=== PATIENT | male | born 1960 | race Hispanic/Latino ===

== ENCOUNTER 2018-07-12 09:36 | Emergency (ER) | payer OTHER ==
[2018-07-12] MEDS ORDERED: NA CHLORIDE 0.9% 1,000 ML ONE (10:45)
[2018-07-12 10:48] LABS: Absolute Lymphocytes (CBC) 1.6 K/uL (0.7-4.9); Absolute Monocytes 0.7 K/uL (0.1-1.3); Absolute Neutrophil 4.5 K/uL (1.8-8.0); Eosinophils % 12.1 % (0-4.4); Hematocrit 45.6 % (39.6-49.0); Lymphocytes % 21.1 % (15.3-44.8); MCH 29.4 pg (27.0-35.0); MCV 87.5 fL (80-100); MPV 7.7 fL (7.6-11.3); Monocytes % 8.4 % (3.3-12.3); RBC Red Blood Cell Count 5.21 M/uL (4.33-5.43)
[2018-07-12] MEDS ORDERED: CLINDAMYCIN 600MG/D5W 600 MG/50 ML BAG IV ONE (10:48)
[2018-07-12] MEDS ORDERED: KETOROLAC 30 MG/ML INJ ONE (11:36)
--- NOTE | 2018-07-12 13:54 | ER ---
Nurse's Notes [facility] Name: Moisés Albarado Age: 57 yrs Sex: Male : 1960 Arrival Date: 07/12/2018 Time: 09:41 Bed 19 Private MD: Unknown, Unknown Diagnosis: Local infection of the skin and subcutaneous tissue, unspecified-left great toe Presentation: 07/12 09:49 Presenting complaint: Patient states: Infection to left great toe that started 2 weeks aj ago after ingrown toenail removal. Patient has appointment with PCP. Transition of care: patient was not received from another setting of care. Onset of symptoms was June 24, 2018. Risk Assessment: Do you want to hurt yourself or someone else? Patient reports no desire to harm self or others. Initial Sepsis Screen: Does the patient meet any 2 criteria? No. Patient's initial sepsis screen is negative. Does the patient have a suspected source of infection? No. Patient's initial sepsis screen is negative. Care prior to arrival: None. 09:49 Method Of Arrival: Ambulatory aj 09:49 Acuity: BLANKA 3 aj Triage Assessment: 09:51 General: Appears in no apparent distress. comfortable, Behavior is calm, cooperative, aj appropriate for age. Pain: Complains of pain in left first toe and Left first toenail. Neuro: Level of Consciousness is awake, alert, obeys commands, Oriented to person, place, time, situation, Appropriate for age. Respiratory: Airway is patent Respiratory effort is even, unlabored, Respiratory pattern is regular, symmetrical. Derm: Skin is intact, is healthy with good turgor, Skin is pink, warm \T\ dry. normal, Redness and inflammation to left great toe. Nail missing. Black eschar noted. Historical: - Allergies: 09:51 No Known Allergies; aj - Home Meds: 09:51 None [Active]; aj - PMHx: 09:51 None; aj - PSHx: 09:51 None; aj - Immunization history:: Adult Immunizations up to date. - Social history:: Smoking status: Patient uses tobacco products, smokes one pack cigarettes per day. Patient uses alcohol, on a daily basis. - Ebola Screening: : Patient negative for fever greater than or equal to 101.5 degrees Fahrenheit, and additional compatible Ebola Virus Disease symptoms Patient denies exposure to infectious person Patient denies travel to an Ebola-affected area in the 21 days before illness onset No symptoms or risks identified at this time. Screenin:00 Abuse screen: Denies threats or abuse. Nutritional screening: No deficits noted. ja1 Tuberculosis screening: No symptoms or risk factors identified. Fall Risk None identified. Assessment: 11:00 General: Appears in no apparent distress. comfortable, Behavior is calm, cooperative. iw Pain: Complains of pain in left first toe. Neuro: No deficits noted. Level of Consciousness is awake, alert, obeys commands, Oriented to person, place, time, situation. Respiratory: Respiratory effort is even, unlabored. Derm: Decubitus located on left great toe. Musculoskeletal: Reports pain in left first toe. Vital Signs: 09:51 BP 159 / 85; Pulse 108; Resp 16; Temp 98.4; Pulse Ox 98% on R/A; Weight 74.39 kg; aj Height 5 ft. 4 in. (162.56 cm); 13:48 BP 154 / 95; Pulse 76; Resp 16; Temp 98.6(O); Pulse Ox 100% on R/A; Pain 0/10; iw 09:51 Body Mass Index 28.15 (74.39 kg, 162.56 cm) aj ED Course: 09:41 Patient arrived in ED. sb2 09:41 Unknown, Unknown is Private Physician. sb2 09:50 Triage completed. aj 09:51 Arm band placed on left wrist. Patient placed in an exam room. aj 10:00 Patient has correct armband on for positive identification. Allergy band placed. ja1 10:06 [facility] kb 10:06 Song Holm MD is Attending Physician. kb 10:13 Salazar Soliman RN is Primary Nurse. ja1 10:50 Inserted saline lock: 20 gauge in left. ja1 10:55 Hemoglobin A1c Sent. ja1 11:03 Wound Culture Sent. ja1 13:00 No provider procedures requiring assistance completed. ja1 13:25 X-ray completed. Portable x-ray completed in exam room. Patient tolerated procedure mh1 well. 13:27 Foot Left 3 View XRAY In Process Unspecified. EDMS 14:10 IV discontinued. ja1 Administered Medications: 10:51 Drug: Clindamycin 600 mg Route: IVPB; Infused Over: 30 mins; Site: left antecubital; iw 11:30 Follow up: IV Status: Completed infusion iw 10:51 Drug: NS 0.9% 1000 ml Route: IV; Rate: 1000 ml; Site: left antecubital; iw 11:45 Follow up: IV Status: Completed infusion iw 11:33 Drug: TORadol 30 mg Route: IVP; Site: left antecubital; ja1 12:00 Follow up: Response: No adverse reaction Outcome: 13:53 Discharge ordered by MD. acosta 14:10 Discharged to home ambulatory. ja1 14:10 Condition: good 14:10 Discharge instructions given to patient. 14:12 Patient left the ED. ja1 Addendum: 07/15/2018 09:44 Addendum: Culture Results: Positive wound culture. Bacteria is resistant to, has i w intermediate sensitivity, or is not tested against prescribed antibiotics. Report given to SIDNEY for further evaluation and then to compression molding machine operator for follow up with patient. Phone call Attempt #1 still s/s infection Prescription called-in to pharmacy of choice. Cipro 500 mg 1 tab PO BID X 10 days, #20, no refills. Signatures: Dispatcher [employer] EDMS Adelaide Zepeda, SMT MACHINE OPERATOR-C SMT MACHINE OPERATOR-June Jaffe RN RN aj Harvey, Martha 1 Harriet Wood, EMMANUEL BENITEZ Salazar Soliman RN RN [email or web address] Agnes Killian sb2 Corrections: (The following items were deleted from the chart) 07/12 13:52 13:48 Pulse 76bpm; Resp 16bpm; Pulse Ox 100% RA; Temp 98.6F Oral; Pain 0/10; iw iw
--- NOTE | 2018-07-12 13:54 | EDPHYS ---
Physician Documentation [facility] Name: Moisés Albarado Age: 57 yrs Sex: Male : 1960 Arrival Date: 07/12/2018 Time: 09:41 Bed 19 Private MD: Unknown, Unknown ED Physician Song Holm HPI: 07/12 10:23 This 57 yrs old Male presents to ER via Ambulatory with complaints of Toe kb Injury. 10:23 The patient presents with pain, swelling, tenderness. The complaints affect the left kb first toe. Context: resulted from Having toenail removed due to ingrown toenail, the patient can fully bear weight, the patient is able to ambulate. Onset: The symptoms/episode began/occurred 2 week(s) ago. Modifying factors: The symptoms are alleviated by nothing, the symptoms are aggravated by nothing. Associated signs and symptoms: Pertinent positives: swelling, Pertinent negatives: calf tenderness, fever, nausea, numbness, rash, tingling, vomiting, warmth, weakness. Severity of symptoms: At their worst the symptoms were moderate, in the emergency department the symptoms are unchanged. The patient has not experienced similar symptoms in the past. The patient has not recently seen a physician. Pt reports he had an ingrown toenail, had the entire nail removed in [place] 3 weeks ago. Has been having pain, redness and swelling to left great toe for 2 weeks. . Historical: - Allergies: 09:51 No Known Allergies; aj - Home Meds: 09:51 None [Active]; aj - PMHx: 09:51 None; aj - PSHx: 09:51 None; aj - Immunization history:: Adult Immunizations up to date. - Social history:: Smoking status: Patient uses tobacco products, smokes one pack cigarettes per day. Patient uses alcohol, on a daily basis. - Ebola Screening: : Patient negative for fever greater than or equal to 101.5 degrees Fahrenheit, and additional compatible Ebola Virus Disease symptoms Patient denies exposure to infectious person Patient denies travel to an Ebola-affected area in the 21 days before illness onset No symptoms or risks identified at this time. ROS: 10:19 Constitutional: Negative for fever, chills, and weight loss, Cardiovascular: Negative kb for chest pain, palpitations, and edema, Respiratory: Negative for shortness of breath, cough, wheezing, and pleuritic chest pain, Abdomen/GI: Negative for abdominal pain, nausea, vomiting, diarrhea, and constipation, Back: Negative for injury and pain, : Negative for injury, bleeding, discharge, and swelling, MS/Extremity: Negative for injury and deformity, Neuro: Negative for headache, weakness, numbness, tingling, and seizure. 10:19 Skin: Positive for erythema, swelling, nail removed. Exam: 10:21 Constitutional: This is a well developed, well nourished patient who is awake, alert, kb and in no acute distress. Head/Face: Normocephalic, atraumatic. Chest/axilla: Normal chest wall appearance and motion. Nontender with no deformity. No lesions are appreciated. Cardiovascular: Regular rate and rhythm with a normal S1 and S2. No gallops, murmurs, or rubs. Normal PMI, no JVD. No pulse deficits. Respiratory: Lungs have equal breath sounds bilaterally, clear to auscultation and percussion. No rales, rhonchi or wheezes noted. No increased work of breathing, no retractions or nasal flaring. Abdomen/GI: Soft, non-tender, with normal bowel sounds. No distension or tympany. No guarding or rebound. No evidence of tenderness throughout. MS/ Extremity: Pulses equal, no cyanosis. Neurovascular intact. Full, normal range of motion. Neuro: Awake and alert, GCS 15, oriented to person, place, time, and situation. Cranial nerves II-XII grossly intact. Motor strength 5/5 in all extremities. Sensory grossly intact. Cerebellar exam normal. Normal gait. 10:21 Skin: Appearance: normal except for affected area, Color: erythematous, swelling, noted on the left first toe, that are moderate. Vital Signs: 09:51 BP 159 / 85; Pulse 108; Resp 16; Temp 98.4; Pulse Ox 98% on R/A; Weight 74.39 kg; aj Height 5 ft. 4 in. (162.56 cm); 13:48 BP 154 / 95; Pulse 76; Resp 16; Temp 98.6(O); Pulse Ox 100% on R/A; Pain 0/10; iw 09:51 Body Mass Index 28.15 (74.39 kg, 162.56 cm) aj MDM: 10:06 Patient medically screened. kb 10:20 Data reviewed: vital signs, nurses notes. Data interpreted: Pulse oximetry: on room air kb is 98 %. Interpretation: normal. 11:42 Counseling: I had a detailed discussion with the patient and/or guardian regarding: the kb historical points, exam findings, and any diagnostic results supporting the discharge/admit diagnosis, lab results, the need for outpatient follow up, a family practitioner, to return to the emergency department if symptoms worsen or persist or if there are any questions or concerns that arise at home. 07/12 10:17 Order name: CBC with Diff; Complete Time: 11:26 kb 07/12 10:17 Order name: Basic Metabolic Panel; Complete Time: 11:26 kb 07/12 10:17 Order name: Wound Culture kb 07/12 10:17 Order name: Hemoglobin A1c kb 07/12 11:43 Order name: Foot Left 3 View XRAY 07/12 10:17 Order name: IV Start; Complete Time: 10:55 kb 07/12 11:58 Order name: Vital Signs; Complete Time: 13:52 kb Administered Medications: 10:51 Drug: Clindamycin 600 mg Route: IVPB; Infused Over: 30 mins; Site: left antecubital; iw 11:30 Follow up: IV Status: Completed infusion iw 10:51 Drug: NS 0.9% 1000 ml Route: IV; Rate: 1000 ml; Site: left antecubital; iw 11:45 Follow up: IV Status: Completed infusion iw 11:33 Drug: TORadol 30 mg Route: IVP; Site: left antecubital; ja1 12:00 Follow up: Response: No adverse reaction iw Disposition: 07/12/18 13:53 Discharged to Home. Impression: Local infection of the skin and subcutaneous tissue, unspecified - left great toe. - Condition is Stable. - Discharge Instructions: Wound Infection, [id number]. - Prescriptions for Keflex 500 mg Oral Capsule - take 1 capsule by ORAL route every 8 hours for 10 days; 30 capsule. Tramadol 50 mg Oral Tablet - take 1 tablet by ORAL route every 8 hours as needed; 12 tablet. Bactrim DS 800- 160 mg Oral Tablet - take 1 tablet by ORAL route every 12 hours for 10 days; 20 tablet. - Medication Reconciliation Form, Thank You Letter, Antibiotic Education, Prescription Opioid Use form. - Follow up: Emergency Department; When: As needed; Reason: Worsening of condition. Follow up: Private Physician; When: 2 - 3 days; Reason: Recheck today's complaints, Continuance of care, Re-evaluation by your physician. Signatures: Dispatcher [employer] EDAdelaide Hunter, KEIKO-Trina HARRISP-June Jaffe, RN RN Harriet Stahl, RN Salazar Khalil, RN RN ja1 Corrections: (The following items were deleted from the chart) 14:12 13:53 07/12/2018 13:53 Discharged to Home. Impression: Local infection of the skin and ja1 subcutaneous tissue, unspecified - left great toe. Condition is Stable. Discharge Instructions: Wound Infection, [id number]. Prescriptions for Keflex 500 mg Oral Capsule - take 1 capsule by ORAL route every 8 hours for 10 days; 30 capsule, Tramadol 50 mg Oral Tablet - take 1 tablet by ORAL route every 8 hours as needed; 12 tablet, Bactrim DS 800-160 mg Oral Tablet - take 1 tablet by ORAL route every 12 hours for 10 days; 20 tablet. and Forms are Medication Reconciliation Form, Thank You Letter, Antibiotic Education, Prescription Opioid Use. Follow up: Emergency Department; When: As needed; Reason: Worsening of condition. Follow up: Private Physician; When: 2 - 3 days; Reason: Recheck today's complaints, Continuance of care, Re-evaluation by your physician. kb
--- NOTE | 2018-07-12 14:22 | RAD REPORT ---
EXAM DESCRIPTION: RAD - Foot Left 3 View - 07/12/2018 1:26 pm CLINICAL HISTORY: Left Foot pain FINDINGS: No fracture or dislocation is seen. No bony destructive lesion is seen.
[2018-07-12 14:24] VITALS: BP 154/95; TEMP 98.6; O2SAT 100
== END 2018-07-12 14:12 | disposition home or self-care (01) ==
LOC: ER 09:36
DX: L08.9 Local infection of the skin and subcutaneous tissue, unspecified (principal)
CPT/HCPCS: 36415; 80048; 85025; 87070; 87077; 87186; 87205; 96365; 96375; 99284; J7030

== ENCOUNTER 2018-09-01 08:15 | Emergency (ER) | payer OTHER ==
--- OUTSIDE RECORDS SUMMARY | 2018-09-01 08:17 | XMS REPORT | Clinical Summary ---
:1960 Author Organization [facility] Address [address] [place] [address] Care Team Providers Name Role Phone Niall Grewal MD Primary Care Provider Allergies No Known Allergies Current Medications Prescription Sig. Disp. Refills Start Date End Date Status carvedilol (COREG) Take 1 tablet 60 tablet 0 07/26/2018 08/25/2018 3.125 MG tablet (3.125 mg total) by mouth 2 (two) times a day for 30 days. atorvastatin Take 1 tablet 30 tablet 0 07/26/2018 08/25/2018 (LIPITOR) 40 MG (40 mg total) by tablet mouth nightly for 30 days. apixaban (ELIQUIS) 5 Take 1 tablet (5 60 tablet 0 07/26/2018 08/25/2018 mg tablet mg total) by mouth 2 (two) times a day for 30 days. docusate sodium Take 1 capsule 60 capsule 0 07/26/2018 08/25/2018 (COLACE) 100 MG (100 mg total) capsule by mouth 2 (two) times a day for 30 days. polyethylene glycol Take 17 g by 30 packet 0 07/27/2018 08/26/2018 (MIRALAX) 17 gram mouth daily for packet 30 days. aspirin 81 mg Chew 1 tablet 30 tablet 0 07/27/2018 08/26/2018 chewable tablet (81 mg total) daily for 30 days. pantoprazole Take 1 tablet 30 tablet 0 07/26/2018 08/25/2018 (PROTONIX) 40 MG EC (40 mg total) by tablet mouth daily for 30 days. doxycycline Take 1 capsule 28 capsule 0 07/26/2018 08/09/2018 (VIBRAMYCIN) 100 MG (100 mg total) capsule by mouth 2 (two) times a day for 14 days. acetaminophen-codein Take 1 tablet by 20 tablet 0 07/26/2018 08/02/2018 e (TYLENOL WITH mouth every 6 CODEINE #3) 300-30 (six) hours as mg per tablet needed for moderate pain for up to 7 days. 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 Peripheral artery disease (HCC) 07/21/2018 Encounters Date Type Specialty Care Team Description 07/25/2018 Anesthesia Event Cardiothoracic Surgery Zina Yip CRNA 07/25/2018 Procedure Pass Cardiothoracic Surgery 07/25/2018 Surgery Cardiothoracic Surgery Sonny Mortensen, EKOS LYSIS CHECK, ANGIOPLASTY 07/24/2018 Procedure Pass Cardiothoracic Surgery 07/24/2018 Surgery Cardiothoracic Surgery Sonny Mortensen, LEFT LOWER MD EXTREMITY ANGIOGRAPHY, 07/23/2018 Anesthesia Event Cardiothoracic Surgery Douglas Pringle MD 07/21/2018 - Hospital Encounter Cardiology Larry Koenig Arterial thrombosis (Primary Dx); 07/26/2018 MD Cindy PAD (peripheral artery disease) Liliana Piña MD after 08/31/2017 Immunizations Name Dates Previously Given Next Due FLUCELVAX QUAD PF (0.5mL syringe) 07/23/2018 Social History Tobacco Use Types Packs/Day Years Used Date Current Every Day Smoker 1 Alcohol Use Drinks/Week oz/Week Comments Yes 42 Cans of beer 25.2 Sex Assigned at Date Recorded Not on file Last Filed Vital Signs Vital Sign Reading Time Taken Blood Pressure 132/75 07/26/2018 8:25 AM CDT Pulse 98 07/26/2018 8:25 AM CDT Temperature 36.1 C (97 F) 07/26/2018 8:25 AM CDT Respiratory Rate 18 07/26/2018 4:01 AM CDT Oxygen Saturation 97% 07/26/2018 8:25 AM CDT Inhaled Oxygen Concentration - - Weight 72.4 kg (159 lb 9.6 oz) 07/25/2018 7:44 PM CDT Height 170.2 cm (5' 7") 07/23/2018 8:08 AM CDT Body Mass Index 25 07/25/2018 7:44 PM CDT Plan of Treatment Health Maintenance Due Date Last Done Comments COLON CANCER SCREENING 2011 SHINGRIX VACCINE (#1) 2011 INFLUENZA VACCINE Completed 07/23/2018 Implants Implanted Type Area Packaging Specialist Device Expiration Model / Identifier Date Serial / Lot Catheter Supp Quick-Cross Str Tip 5fr 0.035in 150cm 3.1fr - [id number] Cardiovascular N/A: [employer] [id number] / Implanted: 07/25/2018 (Quantity not on file) Implants N/A CORPORATION / Catheter Staff Genetic Counselor Otw 4fr 145cm 3x40mm 14 Daniel Wyalusing Es - [id number] Cardiovascular N/A: BSC PERIPHERAL [id number] / Implanted: 07/25/2018 (Quantity not on file) Implants N/A INTERVENTION / VASCULAR ARA 12cm Treatment Zone, 106cm X 0.035in, Ekosonic Mach 4 Endovascular Device [id number] / Implanted: Qty: 1 on 07/24/2018 by Sonny Mortensen MD CORPORATION / Catheter Staff Genetic Counselor Otw 4fr 150cm [id number] [employer] [place] [id number] / Implanted: Qty: 1 on 07/25/2018 by Sonny Mortensen MD SCIENTIFIC/NICOLASA / PHERAL VASCULAR (MEDI-TECH) Catheter Staff Genetic Counselor Otw 4fr 150cm [id number] Lpr Williams Sl [place] [id number] / Implanted: Qty: 1 on 07/25/2018 by Sonny Mortensen MD SCIENTIFIC/NICOLASA / PHERAL VASCULAR (MEDI-TECH) Catheter Staff Genetic Counselor Williams Otw 3.8fr 135cm [id number] [place] [id number] / Implanted: Qty: 1 on 07/25/2018 by Sonny Mortensen MD SCIENTIFIC/NICOLASA / PHERAL VASCULAR (MEDI-TECH) Procedures Procedure Name Priority Date/Time Associated Comments Diagnosis ESTIMATED GFR Routine 07/26/2018 10:19 Results for this AM CDT procedure are in the results section. BASIC METABOLIC PANEL Routine 07/26/2018 10:19 Results for this AM CDT procedure are in the results section. PARTIAL THROMBOPLASTIN Routine 07/26/2018 10:14 Results for this TIME (PTT) AM CDT procedure are in the results section. POC GLUCOSE Routine 07/26/2018 8:27 Results for this AM CDT procedure are in the results section. ECG 12-LEAD Routine 07/26/2018 8:11 Results for this AM CDT procedure are in the results section. HC COMPLETE BLD COUNT Routine 07/26/2018 2:54 Results for this W/AUTO DIFF AM CDT procedure are in the results section. PARTIAL THROMBOPLASTIN Timed 07/26/2018 2:54 Results for this TIME (PTT) AM CDT procedure are in the results section. POC GLUCOSE Routine 07/25/2018 9:18 Results for this PM CDT procedure are in the results section. HEMOGLOBIN A1C Timed 07/25/2018 6:10 Results for this PM CDT procedure are in the results section. PARTIAL THROMBOPLASTIN STAT 07/25/2018 6:10 Results for this TIME (PTT) PM CDT procedure are in the results section. HC COMPLETE BLD COUNT Timed 07/25/2018 6:10 Results for this W/AUTO DIFF PM CDT procedure are in the results section. POC GLUCOSE Routine 07/25/2018 2:56 Results for this PM CDT procedure are in the results section. POC GLUCOSE Routine 07/25/2018 10:55 Results for this AM CDT procedure are in the results section. ACTIVATED CLOTTING TIME Routine 07/25/2018 9:25 Results for this AM CDT procedure are in the results section. ACTIVATED CLOTTING TIME Routine 07/25/2018 9:15 Results for this AM CDT procedure are in the results section. ACTIVATED CLOTTING TIME Routine 07/25/2018 9:06 Results for this AM CDT procedure are in the results section. ACTIVATED CLOTTING TIME Routine 07/25/2018 8:38 Results for this AM CDT procedure are in the results section. XR CHEST 1 VW PORTABLE Routine 07/25/2018 6:44 Results for this AM CDT procedure are in the results section. ECG 12-LEAD Routine 07/25/2018 5:15 Results for this AM CDT procedure are in the results section. HC COMPLETE BLD COUNT Timed 07/25/2018 4:30 Results for this W/AUTO DIFF AM CDT procedure are in the results section. FIBRINOGEN Timed 07/25/2018 4:30 Results for this AM CDT procedure are in the results section. POC GLUCOSE Routine 07/25/2018 4:07 Results for this AM CDT procedure are in the results section. ESTIMATED GFR Routine 07/25/2018 1:38 Results for this AM CDT procedure are in the results section. TYPE AND SCREEN Routine 07/25/2018 1:38 Results for this AM CDT procedure are in the results section. PARTIAL THROMBOPLASTIN Routine 07/25/2018 1:38 Results for this TIME (PTT) AM CDT procedure are in the results section. PROTHROMBIN TIME WITH Routine 07/25/2018 1:38 Results for this INR AM CDT procedure are in the results section. IONIZED CALCIUM Routine 07/25/2018 1:38 Results for this AM CDT procedure are in the results section. PHOSPHORUS LEVEL Routine 07/25/2018 1:38 Results for this AM CDT procedure are in the results section. MAGNESIUM LEVEL Routine 07/25/2018 1:38 Results for this AM CDT procedure are in the results section. BASIC METABOLIC PANEL Routine 07/25/2018 1:38 Results for this AM CDT procedure are in the results section. ANTI XA, UNFRACTIONATED Routine 07/25/2018 1:38 Results for this AM CDT procedure are in the results section. HC COMPLETE BLD COUNT Timed 07/25/2018 12:45 Results for this W/AUTO DIFF AM CDT procedure are in the results section. FIBRINOGEN Timed 07/25/2018 12:45 Results for this AM CDT procedure are in the results section. POC GLUCOSE Routine 07/24/2018 11:54 Results for this PM CDT procedure are in the results section. FIBRINOGEN Timed 07/24/2018 8:35 Results for this PM CDT procedure are in the results section. POC GLUCOSE Routine 07/24/2018 7:44 Results for this PM CDT procedure are in the results section. POC GLUCOSE Routine 07/24/2018 6:28 Results for this PM CDT procedure are in the results section. XR CHEST 1 VW PORTABLE Routine 07/24/2018 6:02 Results for this PM CDT procedure are in the results section. ECG 12-LEAD Routine 07/24/2018 5:54 Results for this PM CDT procedure are in the results section. ESTIMATED GFR Routine 07/24/2018 5:52 Results for this PM CDT procedure are in the results section. PARTIAL THROMBOPLASTIN Routine 07/24/2018 5:52 Results for this TIME (PTT) PM CDT procedure are in the results section. PROTHROMBIN TIME WITH Routine 07/24/2018 5:52 Results for this INR PM CDT procedure are in the results section. IONIZED CALCIUM Routine 07/24/2018 5:52 Results for this PM CDT procedure are in the results section. PHOSPHORUS LEVEL Routine 07/24/2018 5:52 Results for this PM CDT procedure are in the results section. MAGNESIUM LEVEL Routine 07/24/2018 5:52 Results for this PM CDT procedure are in the results section. HC COMPLETE BLD COUNT Routine 07/24/2018 5:52 Results for this W/AUTO DIFF PM CDT procedure are in the results section. BASIC METABOLIC PANEL Routine 07/24/2018 5:52 Results for this PM CDT procedure are in the results section. ACTIVATED CLOTTING TIME Routine 07/24/2018 2:23 Results for this PM CDT procedure are in the results section. ACTIVATED CLOTTING TIME Routine 07/24/2018 1:59 Results for this PM CDT procedure are in the results section. ACTIVATED CLOTTING TIME Routine 07/24/2018 1:49 Results for this PM CDT procedure are in the results section. POC GLUCOSE Routine 07/24/2018 7:22 Results for this AM CDT procedure are in the results section. ESTIMATED GFR Routine 07/24/2018 4:00 Results for this AM CDT procedure are in the results section. ANTI XA, UNFRACTIONATED Routine 07/24/2018 4:00 Results for this AM CDT procedure are in the results section. HC COMPLETE BLD COUNT Routine 07/24/2018 4:00 Results for this W/AUTO DIFF AM CDT procedure are in the results section. BASIC METABOLIC PANEL Routine 07/24/2018 4:00 Results for this AM CDT procedure are in the results section. POC GLUCOSE Routine 07/23/2018 9:17 Results for this PM CDT procedure are in the results section. CT ANGIOGRAM CHEST W WO STAT 07/23/2018 1:56 Results for this CONTRAST PM CDT procedure are in the results section. NM MYOCARDIAL PERFUSION Routine 07/23/2018 1:51 Results for this STRESS REST 1 DAY PM CDT procedure are in the results section. CV STRESS TEST NUCLEAR Routine 07/23/2018 1:51 Results for this CARDIO PM CDT procedure are in the results section. HEXAGONAL PHOSPHOLIPID Routine 07/23/2018 1:30 Results for this PM CDT procedure are in the results section. BETA-2 GLYCOPROTEIN 1 Routine 07/23/2018 1:30 Results for this ANTIBODY, IGG AND IGM PM CDT procedure are in the results section. CARDIOLIPIN ANTIBODIES Routine 07/23/2018 1:30 Results for this PM CDT procedure are in the results section. LUPUS ANTICOAGULANT Routine 07/23/2018 1:30 Results for this PANEL PM CDT procedure are in the results section. FUNCTIONAL PROTEIN S Routine 07/23/2018 1:30 Results for this PM CDT procedure are in the results section. FUNCTIONAL PROTEIN C Routine 07/23/2018 1:30 Results for this PM CDT procedure are in the results section. ANTITHROMBIN III LEVEL Routine 07/23/2018 1:30 Results for this PM CDT procedure are in the results section. C-REACTIVE PROTEIN Routine 07/23/2018 1:30 Results for this PM CDT procedure are in the results section. FACTOR VIII ASSAY Routine 07/23/2018 1:30 Results for this PM CDT procedure are in the results section. PROTHROMBIN MUTATION, Routine 07/23/2018 1:30 Results for this FACTOR II, BY PCR PM CDT procedure are in the results section. FACTOR V LEIDEN BY PCR Routine 07/23/2018 1:30 Results for this PM CDT procedure are in the results section. VANCOMYCIN LEVEL, Timed 07/23/2018 1:30 Results for this TROUGH PM CDT procedure are in the results section. ESTIMATED GFR Routine 07/23/2018 4:05 Results for this AM CDT procedure are in the results section. ANTI XA, UNFRACTIONATED Routine 07/23/2018 4:05 Results for this AM CDT procedure are in the results section. HC COMPLETE BLD COUNT Routine 07/23/2018 4:05 Results for this W/AUTO DIFF AM CDT procedure are in the results section. BASIC METABOLIC PANEL Routine 07/23/2018 4:05 Results for this AM CDT procedure are in the results section. ANTI XA, UNFRACTIONATED Timed 07/22/2018 8:35 Results for this PM CDT procedure are in the results section. US DUPLEX ARTERIAL Routine 07/22/2018 5:33 Results for this LOWER EXTREMITY PM CDT procedure are in BILATERAL the results section. POC GLUCOSE Routine 07/22/2018 12:09 Results for this PM CDT procedure are in the results section. ANTI XA, UNFRACTIONATED Routine 07/22/2018 11:40 Results for this AM CDT procedure are in the results section. ECHOCARDIOGRAM 2D Routine 07/22/2018 10:44 Results for this COMPLETE W MMODE AM CDT procedure are in SPECTRAL COLOR DOPPLER the results (70346) section. US VEIN MAPPING LOWER Routine 07/22/2018 9:50 Results for this EXTREMITY BILATERAL AM CDT procedure are in the results section. POC GLUCOSE Routine 07/22/2018 7:57 Results for this AM CDT procedure are in the results section. ECG 12-LEAD STAT 07/22/2018 6:33 Results for this AM CDT procedure are in the results section. ANTI XA, UNFRACTIONATED Routine 07/22/2018 2:10 Results for this AM CDT procedure are in the results section. ESTIMATED GFR Routine 07/22/2018 2:10 Results for this AM CDT procedure are in the results section. HC COMPLETE BLD COUNT Routine 07/22/2018 2:10 Results for this W/AUTO DIFF AM CDT procedure are in the results section. BASIC METABOLIC PANEL Routine 07/22/2018 2:10 Results for this AM CDT procedure are in the results section. HEMOGLOBIN A1C Routine 07/22/2018 12:00 Results for this AM CDT procedure are in the results section. LIPID PANEL Timed 07/21/2018 11:40 Results for this PM CDT procedure are in the results section. LACTIC ACID LEVEL, Timed 07/21/2018 11:40 Results for this SEPSIS - NOW AND REPEAT PM CDT procedure are in 2X EVERY [address] results section[address] ANGIOGRAM ABDOMINAL STAT 07/21/2018 10:52 Results for this AORTA AND BILATERAL PM CDT procedure are in ILIOFEMORAL RUNOFF W WO the results CONTRAST section. ANTI XA, UNFRACTIONATED STAT 07/21/2018 6:33 Results for this PM CDT procedure are in the results section. ESTIMATED GFR STAT 07/21/2018 6:33 Results for this PM CDT procedure are in the results section. SEDIMENTATION RATE STAT 07/21/2018 6:33 Results for this PM CDT procedure are in the results section. LACTIC ACID LEVEL, STAT 07/21/2018 6:33 Results for this SEPSIS - NOW AND REPEAT PM CDT procedure are in 2X EVERY 3 HOURS the results section. CREATINE KINASE, TOTAL STAT 07/21/2018 6:33 Results for this (CPK) PM CDT procedure are in the results section. COMPREHENSIVE METABOLIC STAT 07/21/2018 6:33 Results for this PANEL PM CDT procedure are in the results section. TYPE AND SCREEN Routine 07/21/2018 6:33 Results for this PM CDT procedure are in the results section. PARTIAL THROMBOPLASTIN STAT 07/21/2018 6:33 Results for this TIME (PTT) PM CDT procedure are in the results section. PROTHROMBIN TIME WITH STAT 07/21/2018 6:33 Results for this INR PM CDT procedure are in the results section. HC COMPLETE BLD COUNT STAT 07/21/2018 6:33 Results for this W/AUTO DIFF PM CDT procedure are in the results section. BLOOD CULTURE, AEROBIC Routine 07/21/2018 6:30 Results for this & ANAEROBIC PM CDT procedure are in the results section. BLOOD CULTURE, AEROBIC Routine 07/21/2018 6:15 Results for this & ANAEROBIC PM CDT procedure are in the results section. XR FOOT 3+ VW LEFT STAT 07/21/2018 6:14 Results for this PM CDT procedure are in the results section. NV CRITICAL CARE, E/M Routine 07/21/2018 5:34 Results for this 30-74 MINUTES PM CDT procedure are in the results section. after 08/31/2017 Results Estimated GFR (07/26/2018 10:19 AM)Only the most recent of7 resultswithin the time period is included. Estimated GFR >=90 mL/min/1.73 m2 [facility] DEPARTMENT OF Comment: PATHOLOGY AND GENOMIC CatergoryUnitsInterpretation MEDICINE G1 >=90 Normal or high G2 60-89Mildly decreased Y3u30-87Mwksmc to moderately decreased P1l36-62Kvhzwzylbo to severely decreased G4 15-29Severely decreased G5 <15Kidney failure The eGFR was calculated using the Chronic Kidney Disease Epidemiology Collaboration (CKD-EPI) equation. Interpretation is based on recommendations of the National Kidney Foundation-Kidney Disease Outcomes Quality Initiative (NKF-KDOQI) published in 2014. Specimen Plasma specimen Performing Organization Address City/State/Zipcode Phone Number [facility] DEPARTMENT OF PATHOLOGY AND [address] [place] [address] [employer] MEDICINE Basic metabolic panel (07/26/2018 10:19 AM)Only the most recent of6 resultswithin the time period is included. Sodium 137 135 - 148 mEq/L [facility] DEPARTMENT OF PATHOLOGY AND GENOMIC MEDICINE Potassium 4.2 3.5 - 5.0 mEq/L [facility] DEPARTMENT OF PATHOLOGY AND GENOMIC MEDICINE Chloride 100 98 - 112 mEq/L [facility] DEPARTMENT OF PATHOLOGY AND GENOMIC MEDICINE CO2 24 24 - 31 mEq/L [facility] DEPARTMENT OF PATHOLOGY AND GENOMIC MEDICINE Anion gap 13@ANIO 7 - 15 mEq/L [facility] DEPARTMENT OF PATHOLOGY AND GENOMIC MEDICINE BUN 13 6 - 20 mg/dL [facility] DEPARTMENT OF PATHOLOGY AND GENOMIC MEDICINE Creatinine 0.89 0.70 - 1.20 mg/dL [facility] DEPARTMENT OF PATHOLOGY AND GENOMIC MEDICINE Glucose 107 (H) 65 - 99 mg/dL [facility] DEPARTMENT OF PATHOLOGY AND GENOMIC MEDICINE Calcium 9.3 8.3 - 10.2 mg/dL [facility] DEPARTMENT OF PATHOLOGY AND GENOMIC MEDICINE Specimen Plasma specimen Performing Organization Address [facility] Phone Number [facility] DEPARTMENT OF PATHOLOGY AND [address] [place] [address] Partial thromboplastin time, activated (07/26/2018 10:14 AM)Only the most recent of6 resultswithin the time period is included. PTT 63.4 (H) 23.0 - 36.0 sec [facility] DEPARTMENT OF PATHOLOGY Comment: AND [facility] PTT therapeutic range for unfractionated heparin is 61.0-112.0 seconds which corresponds to Anti-Xa 0.3-0.7 U/ml. Specimen Blood Performing Organization Address [facility] [place] Phone Number [facility] DEPARTMENT OF PATHOLOGY AND [address] [place] [address] POC glucose (07/26/2018 8:27 AM)Only the most recent of12 resultswithin the time period is included. POC glucose 121 (H) 65 - 99 mg/dL [facility] DEPARTMENT OF PATHOLOGY AND Comment: [facility] MEDICINE FOR[facility]LY [facility], [facility] Notified RN Meter ID: [id number] Vest Maker: Jarred Mark Performing Organization Address [facility] [place] Phone Number [facility] DEPARTMENT OF PATHOLOGY AND [address] [place] [address] ECG 12 lead (07/26/2018 8:11 AM)Only the most recent of4 resultswithin the time period is included. Ventricular rate 88 [facility] Atrial rate 88 [facility] NV interval 164 [facility] QRSD interval 78 [facility] QT interval 388 [facility] QTC interval 469 [facility] P axis 1 -5 [facility] QRS axis 1 -55 [facility] T wave axis 38 [facility] MUSE EKG impression Normal sinus rhythm-Left axis deviation-Low voltage QRS- Abnormal ECG-In automated comparison with ECG of 25-JUL-2018 05:15,-ST no longer elevated in Anterior leads-T wave inversion no longer evident in [facility] Inferior leads- Performing Organization Address City/State/Zipcode Phone Number [facility] M[facility] [address] [place] [address] CBC with platelet and differential (07/26/2018 2:54 AM)Only the most recent of9 resultswithin the time period is included. WBC 10.03 4.50 - 11.00 k/uL [facility] DEPARTMENT OF PATHOLOGY AND GENOMIC MEDICINE RBC 4.71 4.40 - 6.00 m/uL [facility] DEPARTMENT OF PATHOLOGY AND GENOMIC MEDICINE HGB 13.9 (L) 14.0 - 18.0 g/dL [facility] DEPARTMENT OF PATHOLOGY AND GENOMIC MEDICINE HCT 42.2 41.0 - 51.0 % [facility] DEPARTMENT OF PATHOLOGY AND GENOMIC MEDICINE MCV 89.6 82.0 - 100.0 fL [facility] DEPARTMENT OF PATHOLOGY AND GENOMIC MEDICINE MCH 29.5 27.0 - 34.0 pg [facility] DEPARTMENT OF PATHOLOGY AND GENOMIC MEDICINE MCHC 32.9 31.0 - 37.0 g/dL [facility] DEPARTMENT OF PATHOLOGY AND GENOMIC MEDICINE RDW - SD 44.6 37.0 - 55.0 fL [facility] DEPARTMENT OF PATHOLOGY AND GENOMIC MEDICINE MPV 9.6 8.8 - 13.2 fL [facility] DEPARTMENT OF PATHOLOGY AND GENOMIC MEDICINE Platelet count 199 150 - 400 k/uL [facility] DEPARTMENT OF PATHOLOGY AND GENOMIC MEDICINE Nucleated RBC 0.00 /100 WBC [facility] DEPARTMENT OF PATHOLOGY AND GENOMIC MEDICINE Neutrophils 63.1 39.0 - 69.0 % [facility] DEPARTMENT OF PATHOLOGY AND GENOMIC MEDICINE Lymphocytes 22.7 (L) 25.0 - 45.0 % [facility] DEPARTMENT OF PATHOLOGY AND GENOMIC MEDICINE Monocytes 7.8 0.0 - 10.0 % [facility] DEPARTMENT OF PATHOLOGY AND GENOMIC MEDICINE Eosinophils 5.5 (H) 0.0 - 5.0 % [facility] DEPARTMENT OF PATHOLOGY AND GENOMIC MEDICINE Basophils 0.6 0.0 - 1.0 % [facility] DEPARTMENT OF PATHOLOGY AND GENOMIC MEDICINE Immature granulocytes 0.3Comment: 0.0 - 1.0 % [facility] DEPARTMENT OF "Immature PATHOLOGY AND GENOMIC granulocytes" MEDICINE (promyelocytes, myelocytes, metamyelocytes) Specimen Blood Performing Organization Address City/State/Zipcode Phone Number [facility] DEPARTMENT OF PATHOLOGY AND [address] [place] [address] GENOMIC MEDICINE Hemoglobin A1c (07/25/2018 6:10 PM)Only the most recent of2 resultswithin the time period is included. Hemoglobin A1C 6.5 (H) 4.0 - 5.6 % [facility] DEPARTMENT OF PATHOLOGY Comment: AND GENOMIC MEDICINE HbA1c cutoffs for diagnosing diabetes: 4.0% - 5.6%=normal 5.7% - 6.4%=increased risk for diabetes (prediabetes) >=6.5%=diabetes Goals for glycemic control (ADA 2016) < 7.0%Target for non adults with diabetes. More or less stringent targets may be appropriate for individual patients. <7.5% Target for Children and adolescents with type 1 diabetes. Performing Organization Address City/[facility] Cent[facility]ode Phone Number [facility] DEPARTMENT OF PATHOLOGY AND [address] [place] [address] GENOMIC MEDICINE Activated clotting time (07/25/2018 9:25 AM)Only the most recent of7 resultswithin the time period is included. Activated clotting time 106 96 - 152 sec [facility] DEPARTMENT OF Comment: PATHOLOGY AND GENOMIC Meter ID: [id number] MEDICINE Vest Maker: Haleigh Izaguirre Performing Organization Address City/[facility] Cent[facility] Phone Number [facility] DEPARTMENT OF PATHOLOGY AND [address] [place] [address] XR Chest 1 Vw Portable (07/25/2018 6:44 AM)Only the most recent of2 resultswithin the time period is included. Narrative Performed At EXAMINATION: XR CHEST 1 VW PORTABLE RADIANT INDICATION: ICU ptstable with no clinical status changes COMPARISON: 07/24/2018 IMPRESSION: No new airspace disease. No pleural effusion or pneumothorax. Mildly enlarged cardiac silhouette, unchanged, in part due to portable technique. [id number] Procedure Note Interface, Radiology Results Incoming - 07/25/2018 7:22 AM CDT EXAMINATION: XR CHEST 1 VW PORTABLE INDICATION: ICU pt stable with no clinical status changes COMPARISON: 07/24/2018 IMPRESSION: No new airspace disease. No pleural effusion or pneumothorax. Mildly enlarged cardiac silhouette, unchanged, in part due to portable technique. [facility]-[id number] Performing Organization Address City/[facility]/Zipcode Phone Number [facility] [address] [place] [phone] Fibrinogen (07/25/2018 4:30 AM)Only the most recent of3 resultswithin the time period is included. Fibrinogen 374 200 - 450 mg/dL [facility] DEPARTMENT OF PATHOLOGY AND GENOMIC MEDICINE Specimen Blood Performing Organization Address City/[facility] Phone Number [facility] DEPARTMENT OF PATHOLOGY AND [address] [place] [address] Prothrombin time with INR (07/25/2018 1:38 AM)Only the most recent of3 resultswithin the time period is included. Prothrombin time 14.7 12.0 - 15.0 sec [facility] DEPARTMENT OF PATHOLOGY AND GENOMIC MEDICINE INR 1.1 [facility] DEPARTMENT OF Comment: PATHOLOGY AND GENOMIC The International Normalized Ratio (INR) is a therapeutic MEDICINE monitoring tool for patients who are stable on oral anticoagulant therapy. An INR of 2.0-3.0 is suggested for deep vein thrombosis/pulmonary embolism. Specimen Blood Performing Organization Address [facility] Phone Number [facility] DEPARTMENT OF PATHOLOGY AND [address] [place] [address] Anti Xa, unfractionated (07/25/2018 1:38 AM)Only the most recent of7 resultswithin the time period is included. Anti Xa, unfractionated <0.10 (L)Comment: 0.30 - 0.70 U/mL [facility] DEPARTMENT OF Therapeutic Range: PATHOLOGY AND GENOMIC 0.30 - 0.70 U/mL MEDICINE Specimen Blood Performing Organization Address [facility] Phone Number [facility] DEPARTMENT OF PATHOLOGY AND [address] [place] [phone] GENOMIC MEDICINE Type and screen (07/25/2018 1:38 AM)Only the most recent of2 resultswithin the time period is included. ABO grouping B [facility] DEPARTMENT OF PATHOLOGY AND GENOMIC MEDICINE Rh type POS [facility] DEPARTMENT OF PATHOLOGY AND GENOMIC MEDICINE Antibody screen (gel) NEG [facility] DEPARTMENT OF PATHOLOGY AND GENOMIC MEDICINE Specimen Blood Performing Organization Address City/[facility] Cent[facility]ode Phone Number [facility] DEPARTMENT OF PATHOLOGY AND [address] [place] [phone] GENOMIC MEDICINE Phosphorus level (07/25/2018 1:38 AM)Only the most recent of2 resultswithin the time period is included. Phosphorus 2.8 2.4 - 4.5 mg/dL [facility] DEPARTMENT OF PATHOLOGY AND GENOMIC MEDICINE Specimen Plasma specimen Performing Organization Address [facility] Phone Number [facility] DEPARTMENT OF PATHOLOGY AND [address] [place] [address] Magnesium level (07/25/2018 1:38 AM)Only the most recent of2 resultswithin the time period is included. Magnesium 2.5 1.6 - 2.6 mg/dL [facility] DEPARTMENT OF PATHOLOGY AND GENOMIC MEDICINE Specimen Plasma specimen Performing Organization Address [facility] Phone Number [facility] DEPARTMENT OF PATHOLOGY AND [address] [place] [address] Ionized calcium (07/25/2018 1:38 AM)Only the most recent of2 resultswithin the time period is included. pH 7.44 [facility] DEPARTMENT OF PATHOLOGY AND GENOMIC MEDICINE Ionized calcium 1.22 1.11 - 1.32 mmol/L [facility] DEPARTMENT OF PATHOLOGY AND GENOMIC MEDICINE Specimen Plasma specimen Performing Organization Address [facility] Phone Number [facility] DEPARTMENT OF PATHOLOGY AND [address] [place] [address] CTA Chest W Wo Contrast (07/23/2018 1:56 PM) Narrative Performed At EXAMINATION:CT ANGIOGRAM CHEST W WO CONTRAST [facility] CLINICAL HISTORY:rule out aneurysm and dissection. Chest pain. TECHNIQUE: Multiple CT angiographic images of the chest were obtained during intravenous administration of contrast. Multiple computerized reformatted images as well as 3-D volume rendered images were also obtained. Precontrast images of the chest were also obtained. Scan was performed using radiation dose reduction techniques. COMPARISON:None. FINDINGS: The thoracic aorta demonstrates no significant dilatation. Minimal ectasia in the post-ductal segment measures 3.1 cm. No evidence of dissection or intramural hematoma. Brachiocephalic, carotid, and subclavian arteries are widely patent. Incidental note of duplicated SVC. No pulmonary arterial filling defects. Trace dependent atelectasis. Lungs otherwise clear. Central airways are patent. No pleural or pericardial effusion. No lymphadenopathy. IMPRESSION: No aortic aneurysm/dissection. [facility]-[id number] Procedure Note Interface, Radiology Results Incoming - 07/23/2018 2:29 PM CDT EXAMINATION: CT ANGIOGRAM CHEST W WO CONTRAST CLINICAL HISTORY: rule out aneurysm and dissection. Chest pain. TECHNIQUE: Multiple CT angiographic images of the chest were obtained during intravenous administration of contrast. Multiple computerized reformatted images as well as 3-D volume rendered images were also obtained. Precontrast images of the chest were also obtained. Scan was performed using radiation dose reduction techniques. COMPARISON: None. FINDINGS: The thoracic aorta demonstrates no significant dilatation. Minimal ectasia in the post-ductal segment measures 3.1 cm. No evidence of dissection or intramural hematoma. Brachiocephalic, carotid, and subclavian arteries are widely patent. Incidental note of duplicated SVC. No pulmonary arterial filling defects. Trace dependent atelectasis. Lungs otherwise clear. Central airways are patent. No pleural or pericardial effusion. No lymphadenopathy. IMPRESSION: No aortic aneurysm/dissection. [facility]-[id number] Performing Organization Address [facility] Phone Number [facility] [address] [place] [address] Cv ecg exercise stress (no imaging) (07/23/2018 1:51 PM) Resting HR 75 [facility] MUSE Resting BP 157 [facility] M[facility] Peak MET Achieved 1.0 [facility] M[facility] Protocol Name REGADENO [facility] M[facility] Time in Exercise Phase 00:01:00 [facility] Max Systolic BP 157 [facility]USE Max Diastolic BP 79 [facility]USE Max Heart Rate 106 [facility]USE Max Predicted Heart Rate 164 [facility] MUSE Target HR Formula (220 - Age)*100% H MUSE Test Indication PRE OP CLEARANCE [facility]USE Arrhy During Ex [facility] ECG Interp Before EX [facility] ECG Interp During Ex H MUSE Ex Summary Comment [facility] M[facility] Overall HR Response to [facility] Exercise Overall BP Response To [facility] M[facility] Exercise Reason for Termination [facility] M[facility] Stress Test Impression Waveform interpreted in report [facility] MUSE associated with image study. No interpretation is provided as part of this Stress ECG report.-Electronically Signed By Gaby MURRAY, Eduardo De La Fuente ([id number]), video editor Mateus Teague ([id number]) on 07/23/2018 3:19:39 PM Performing Organization Address [facility] Phone Number [facility] DNS:Net [address] [place] [address] Nm myocardial perfusion (07/23/2018 1:51 PM) Narrative Performed At [facility] Nuclear Cardiology and Cardiac CT [address] [address] Myocardial Perfusion Imaging Report Stress ECG tracings are available in DNS:Net, MemoryMerge and [employer] All ECG interpretations are included in this report Pat.Name:MOISÉS PEREZ Pat.ID:[id number] .Date: 07/23/2018 Refer.MD:LILIANA PIÑA MD Exam Time: 9:58:00 AM Study Type:Myocardial Perfusion Imaging Height:67inBSA: 1.86 m2 DOBAge:1960,57Y Sex: MALE BP:157/79HR: 72 bpm HCT: 39.9 % Nuclear Tech:Lauren Arndt CELL RELINER, ARRT/Salazar Wray CELL RELINER Pat. Stat.:Inpatient Room:[facility] Nuclear Event ID:[id number] Order ID:[id number] Reason for Study:Pre-Op clearance History / Clinical:Hyperlipidemia, Diabetes(bordeline) Procedures:Single Day Stress / Rest Risk Factors:Diabetes, Hyperlipidemia Clinical Symptoms:Regadenoson Physical Exam:S1, S2 Surgery: Serum K+ Date,3.8-07/23/18/, BUN/Creatinine Date, 100.75-07/23/18/ Medications:Lipitor, Morphine SUMMARY: SCINTIGRAPHIC RESULTS Perfusion Defect Size (% LV) 0 % Total 0 % Ischemia 0 % Scar Left Ventricular Perfusion Results There is normal tracer distribution during stress and rest. Gated SPECT Results The post-stress left ventricular ejection fraction is 73 % with normal regional wall motion and left ventricular thickening.Left ventricular end-diastolic volume is 95 ml; end-systolic volume is26 ml. The left ventricle is of normal size at stress and at rest.The right ventricle is of normal size with normal wall motion. Conclusion Normal regadenoson Tc-99m tetrofosmin myocardial perfusion study. The left ventricular ejection fraction is normal. Comments Patients with a normal stress myocardial perfusion study have a low (< 1%) annual risk of cardiac or nonfatal myocardial infarction. Study Quality/Artifacts The study quality is good. The mild reduction in anteroapical wall counts is probably due to soft tissue attenuation artifact rather than coronary artery disease which resolves with prone imaging. Comparison to Previous Study None available. STRESS: Baseline Vital Signs:Intervention: Regadenoson 0.4mg/5ml IV over 10 seconds followed by radiotracer injection and 5ml saline flush ECG: Normal Sinus Rhythm, Right [place] Deviation HR:72 BP:157/79 Stress Test Results: Target HR: 139 Symptoms and Complications: Arrhythmias: None Terminated: As per Regadenoson protocol Symptoms:Shortness of breath Complications: none Conclusions: Normal heart rate response to pharmacological stress, Normal blood pressure response to pharmacological stress Stress ECG Interp: No ischemic ST segment change occurred with stress. Signed 07/23/2018 05:38 PM Eduardo Griffin MD Procedure Note Interface, Radiology Results In - 07/23/2018 5:39 PM CDT Nuclear Cardiology and Cardiac CT [address] [place] [address] Myocardial Perfusion Imaging Report Stress ECG tracings are available in DNS:Net, [employer] and [employer] All ECG interpretations are included in this report Pat.Name: MOISÉS PEREZ Pat.ID: [id number] .Date: 07/23/2018 Refer.MD: LILIANA PIÑA MD Exam Time: 9:58:00 AM Study Type:Myocardial Perfusion Imaging Height: 67in BSA: 1.86 m2 Age: 13 1960,57Y Sex: MALE BP: 157/79 HR: 72 bpm HCT: 39.9 % Nuclear Tech:KYLIE Cabrera, BANNERDakota/Salazar BROOKSMT Pat. Stat.:Inpatient Room: D902-A Nuclear Event ID:[id number] Order ID: [id number] Reason for Study:Pre-Op clearance History / Clinical:Hyperlipidemia, Diabetes(bordeline) Procedures:Single Day Stress / Rest Risk Factors:Diabetes, Hyperlipidemia Clinical Symptoms:Regadenoson Physical Exam:S1, S2 Surgery: Serum K+ Date, 3.8-07/23/18/, BUN/Creatinine Date, 100.75-07/23/18/ Medications:Lipitor, Morphine SUMMARY: SCINTIGRAPHIC RESULTS Perfusion Defect Size (% LV) 0 % Total 0 % Ischemia 0 % Scar Left Ventricular Perfusion Results There is normal tracer distribution during stress and rest. Gated SPECT Results The post-stress left ventricular ejection fraction is 73 % with normal regional wall motion and left ventricular thickening. Left ventricular end-diastolic volume is 95 ml; end-systolic volume is 26 ml. The left ventricle is of normal size at stress and at rest. The right ventricle is of normal size with normal wall motion. Conclusion Normal regadenoson Tc-99m tetrofosmin myocardial perfusion study. The left ventricular ejection fraction is normal. Comments Patients with a normal stress myocardial perfusion study have a low (< 1%) annual risk of cardiac or nonfatal myocardial infarction. Study Quality/Artifacts The study quality is good. The mild reduction in anteroapical wall counts is probably due to soft tissue attenuation artifact rather than coronary artery disease which resolves with prone imaging. Comparison to Previous Study None available. STRESS: Baseline Vital Signs: Intervention: Regadenoson 0.4mg/5ml IV over 10 seconds followed by radiotracer injection and 5ml saline flush ECG: Normal Sinus Rhythm, Right [place] Deviation HR: 72 BP: 157/79 Stress Test Results: Target HR: 139 Symptoms and Complications: Arrhythmias: None Terminated: As per Regadenoson protocol Symptoms: Shortness of breath Complications: none Conclusions: Normal heart rate response to pharmacological stress, Normal blood pressure response to pharmacological stress Stress ECG Interp: No ischemic ST segment change occurred with stress. Signed 07/23/2018 05:38 PM Eduardo Griffin MD Performing Organization Address City/[facility]/Zipcode Phone Number [facility] [address] [place] [address] Hexagonal phospholipid (07/23/2018 1:30 PM) Hexagonal phospholipid tube #1 55.5 sec [facility] DEPARTMENT OF PATHOLOGY AND GENOMIC MEDICINE Hexagonal phospholipid tube #2 50.7 sec [facility] DEPARTMENT OF PATHOLOGY AND GENOMIC MEDICINE Tube 1 - 2 4.8 0.0 - 8.0 sec [facility] DEPARTMENT OF PATHOLOGY AND GENOMIC MEDICINE LA interpretation Negative [facility] DEPARTMENT OF PATHOLOGY AND GENOMIC MEDICINE Specimen Blood Performing Organization Address [facility] Centercode Phone Number [facility] DEPARTMENT OF PATHOLOGY AND [address] [place] [phone] [facility] Prothrombin mutation, factor II, by PCR (07/23/2018 1:30 PM) Prothrombin gene mutation Normal Normal [facility] DEPARTMENT OF PATHOLOGY AND GENOMIC MEDICINE Prothrombin gene mutation See link below for PDF [facility] DEPARTMENT OF Lab ReportComment: Case PATHOLOGY AND GENOMIC Number: [id number] MEDICINE Specimen Blood Performing Organization Address [facility] Phone Number [facility] DEPARTMENT OF PATHOLOGY AND [address] [place] [phone] [facility] Beta-2 glycoprotein 1 antibody, IgG and IgM (07/23/2018 1:30 PM) Beta-2 glycoprotein 1 <9.4 0.0 - 20.0 [facility] DEPARTMENT OF antibody, IgG Comment: PATHOLOGY AND GENOMIC Negative=<20.0 [facility] MEDICINE Positive >20.0 [facility] Beta-2 glycoprotein 1 <9.4 0.0 - 20.0 [facility] DEPARTMENT OF antibody, IgM Comment: PATHOLOGY AND GENOMIC Negative=<20.0 [facility] MEDICINE Positive >20.0 [facility] Specimen Blood Performing Organization Address [facility] Centercode Phone Number [facility] DEPARTMENT OF PATHOLOGY AND [address] [place] [phone] [facility] Functional protein S (07/23/2018 1:30 PM) Functional protein S 138 74 - 160 % [facility] DEPARTMENT OF Comment: PATHOLOGY AND GENOMIC Functional Protein S performed.If result is decreased Total MEDICINE and Free Protein S Antigen will be performed. Specimen Blood Performing Organization Address City/[facility]/Zipcode Phone Number [facility] DEPARTMENT OF PATHOLOGY AND [address] [place] [phone] [place] [address] MEDICINE Functional protein C (07/23/2018 1:30 PM) Functional protein C 133 70 - 165 % [facility] DEPARTMENT OF PATHOLOGY AND GENOMIC MEDICINE Specimen Blood Performing Organization Address [facility] Phone Number [facility] DEPARTMENT OF PATHOLOGY AND [address] [place] [phone] [place] [address] Lupus anticoagulant panel (07/23/2018 1:30 PM) Prothrombin time 13.1 12.0 - 15.0 sec [facility] DEPARTMENT OF PATHOLOGY AND GENOMIC MEDICINE INR 1.0 [facility] DEPARTMENT OF Comment: PATHOLOGY AND The International Normalized Ratio (INR) is a therapeutic GENOMIC MEDICINE monitoring tool for patients who are stable on oral anticoagulant therapy. An INR of 2.0-3.0 is suggested for deep vein thrombosis/pulmonary embolism. PTT 62.5 (H) 23.0 - 36.0 sec [facility] DEPARTMENT OF Comment: PATHOLOGY AND PTT therapeutic range for unfractionated heparin is GENOMIC MEDICINE 61.0-112.0 seconds which corresponds to Anti-Xa 0.3-0.7 U/ml. PTT lupus anticoagulant 55.3 (H) 27.0 - 38.0 sec [facility] DEPARTMENT OF Comment: PATHOLOGY AND Lupus anticoagulant (LA) panel consists of PT, PTT, PTT-LA, GENOMIC MEDICINE and DRVVT. If the PTT-LA is above the normal range, the hexagonal phospholipid will be performed. If the DRVVT is above the normal range, the DRVVC confirmatory test will be performed. A normal result for both the DRVVT and the PTT-LA means the patient is negative for lupus anticoagulant. The patient is considered positive for lupus anticoagulant if either the Ratio SCR/CONF or the hexagonal phospholipid is high (positive) on two occassions at least six weeks apart. Clinical confirmation is also required for diagnosis. DRVVT 33.3 29.0 - 46.0 sec [facility] DEPARTMENT OF PATHOLOGY AND [employer] MEDICINE Specimen Blood Performing Organization Address [facility] Centercode Phone Number [facility] DEPARTMENT OF PATHOLOGY AND [address] [place] [phone] [facility] Cardiolipin antibodies (07/23/2018 1:30 PM) Cardiolipin IgG 2 0 - 14 GPL [facility] DEPARTMENT OF PATHOLOGY AND Comment: GENOMIC MEDICINE Negative=<15 GPL Indeterminate=15-20 GPL Positive=>20 GPL Cardiolipin IgM 4 0 - 12 MPL [facility] DEPARTMENT OF PATHOLOGY AND Comment: GENOMIC MEDICINE Negative=<13 MPL Indeterminate=13-20 MPL Positive=>20 MPL Specimen Blood Performing Organization Address [facility] Phone Number [facility] DEPARTMENT OF PATHOLOGY AND [address] [place] [phone] [place] [address] Factor V leiden by PCR (07/23/2018 1:30 PM) Factor V Leiden Normal [facility] DEPARTMENT OF PATHOLOGY AND GENOMIC MEDICINE Factor V Leiden See link below for PDF Lab [facility] DEPARTMENT OF PATHOLOGY AND ReportComment: Case Number: [facility] [id number] Specimen Blood Performing Organization Address [facility] Phone Number [facility] DEPARTMENT OF PATHOLOGY AND [address] [place] [phone] [place] [address] Antithrombin III level (07/23/2018 1:30 PM) Antithrombin III 79 (L) 80 - 130 % [facility] DEPARTMENT OF PATHOLOGY AND GENOMIC MEDICINE Specimen Blood Performing Organization Address [facility] Phone Number [facility] DEPARTMENT OF PATHOLOGY AND [address] [place] [phone] [facility] Factor VIII assay (07/23/2018 1:30 PM) Factor VIII activity 133 60 - 150 % [facility] DEPARTMENT OF PATHOLOGY AND [employer] MEDICINE Specimen Blood Performing Organization Address [facility] Phone Number [facility] DEPARTMENT OF PATHOLOGY AND [address] [place] [phone] [facility] C-reactive protein (07/23/2018 1:30 PM) CRP 1.73 (H) 0.00 - 0.50 mg/dL [facility] DEPARTMENT OF PATHOLOGY AND GENOMIC MEDICINE Specimen Plasma specimen Performing Organization Address [facility] Phone Number [facility] DEPARTMENT OF PATHOLOGY AND [address] [place] [phone] [facility] Vancomycin level, trough (07/23/2018 1:30 PM) Vancomycin, trough 6.8 (L) 10.0 - 20.0 ug/mL [facility] DEPARTMENT OF Comment: PATHOLOGY AND GENOMIC Therapeutic Ranges: MEDICINE Peak 30.0 - 40.0 ug/mL Nfcxig98.0 - 20.0 ug/mL Specimen Serum Performing Organization Address City/[facility] Centercode Phone Number [facility] DEPARTMENT OF PATHOLOGY AND [address] [facility] [place] [address] [employer] MEDICINE Pv duplex arterial lower extremity (07/22/2018 5:33 PM) Narrative Performed At [facility] Vascular Ultrasound Laboratory Lower Extremity Arterial Duplex Report [id number] [facility], [facility] [address], [place] [address] Pat.Name:MOISÉS PEREZ Pat.ID:[id number] .Date: 07/22/2018 Refer.MD:SONNY MORTENSEN MD Exam Time: 3:44:00 PMStudy Type:LE Arterial Height:67inDOBAge: 1960,57Y Sex: MALESonogrphr: Garcia King RVT, [facility] Pat. Stat.:Inpatient Room:[address] TapeVol: SIL, CPT - 4: [id number], [id number] Echo Event ID:[id number] Order ID:[id number] Reason for Study:Evaluate for bilateral popliteal aneurysm. PMH of DM, HLD, angina. Procedures:Colorflow, Grayscale/2D, Pulsed wave Doppler SUMMARY: DUPLEX SCAN OBSERVATIONS: RIGHT: There is scattered hard plaque in the common femoral, profunda femoris, superficial femoral and popliteal arteries. Colorflow and triphasic Doppler signals are noted. There is mild calcification noted in the posterior tibial, peroneal and anterior tibial arteries; colorflow and triphasic Doppler signals noted. Bilateral lower extremity arterial exam demonstrates no evidence of significant arterial occlusive disease. The JONATHON's and TBI's are within normal range. hard plaque in the common femoral, profunda femoris and superficial femoral. There is soft echogenic plaque noted in the popliteal artery; absent color and Doppler signals are noted. There is mild calcification noted in the posterior tibial, peroneal and anterior tibial arteries. There is absent color and Doppler signal noted in the proximal and distal posterior tibial artery; flow reconstitution is noted in the mid posterior tibial artery possibly from collateral channels. Absent color and Doppler signals noted in the peroneal artery. Anterior tibial artery is patent with monophasic Doppler signals noted. PRELIMINARY FINDINGS: 1. Occluded left popliteal artery; soft echogenic plaque noted (acute). 2. Occluded left proximal and distal posterior tibial artery. 3. Absent color and Doppler signals noted in the left peroneal artery. 4. Right ankle/brachial indices fall into the normal category. 5. Left ankle/brachial index fall into the severe category on the dorsalis pedis artery. 6. Right toe/brachial index fall into the normal category. 7. Unable to obtain left toe/brachial index due to absent Doppler signals. *Report given to EMMANUEL Johnston at 1901 hr on 07/22/2018. PHYSICIAN INTERPRETATION: Bilateral lower extremity arterial duplex exam demonstrates left popliteal, per[place] LIQUID SUGAR FORTIFIER significant arterial occlusive disease. Right ankle/brachial indices fall into the normal category. Left ankle/brachial index fall into the severe category on the dorsalis pedis artery.Right toe/brachial index fall into the normal category. MEASUREMENTS: DOPPLER Right COMPUTER FORENSICS INVESTIGATOR prox COMPUTER FORENSICS INVESTIGATOR prox PSV 107 cm/s Right Profunda Profunda PSV 126 cm/s Right SFA Dist SFA Dist PSV 117 cm/s Right SFA Mid SFA Mid TDW960 cm/s Right SFA Prox SFA Prox PSV73.1 cm/s Right Pop Dist Pop Dist PSV92.6 cm/s Right Pop Prox Pop Prox PSV65.1 cm/s Right LIQUID SUGAR FORTIFIER Dist LIQUID SUGAR FORTIFIER Dist PSV83.1 cm/s Right LIQUID SUGAR FORTIFIER Mid LIQUID SUGAR FORTIFIER Mid PSV 81.9 cm/s Right LIQUID SUGAR FORTIFIER Prox LIQUID SUGAR FORTIFIER Prox PSV 100 cm/sPTA Prox PSV 100 cm/s Right Peroneal Dist Peroneal Dist P48.2 cm/s Right Peroneal Mid Peroneal Mid PS58.6 cm/s Right Peroneal Prox Peroneal Prox P63.7 cm/s Right BINH Dist BINH Dist PSV87 cm/s Right BINH Mid BINH Mid PSV 79.3 cm/s Left COMPUTER FORENSICS INVESTIGATOR Dist COMPUTER FORENSICS INVESTIGATOR Dist PSV 105 cm/s Left SFA Dist SFA Dist PSV61.8 cm/s Left SFA Mid SFA Mid PSV 61.8 cm/s Left SFA Prox SFA Prox PSV73.1 cm/s Left Pop Dist Pop Dist PSV 0 cm/s Left Pop Prox Pop Prox PSV 0 cm/sPop Prox PSV 0 cm/s Left LIQUID SUGAR FORTIFIER Dist LIQUID SUGAR FORTIFIER Dist PSV 0 cm/s Left LIQUID SUGAR FORTIFIER Mid LIQUID SUGAR FORTIFIER Mid PSV 11.1 cm/s Left LIQUID SUGAR FORTIFIER Prox LIQUID SUGAR FORTIFIER Prox PSV 0 cm/s Left Peroneal Dist Peroneal Dist P 0 cm/s Left Peroneal Mid Peroneal Mid PS 0 cm/s Left Peroneal Prox Peroneal Prox P22.6 cm/s Left BINH Dist BINH Dist PSV11.5 cm/s Left BINH Mid BINH Mid PSV 12.2 cm/s Left BINH Prox BINH Prox PSV9.68 cm/sATA Prox PSV 9.7 cm/s Left Profunda Profunda PSV 109 cm/s Right COMPUTER FORENSICS INVESTIGATOR Dist COMPUTER FORENSICS INVESTIGATOR Dist PSV 107 cm/s Right LIQUID SUGAR FORTIFIER Distal LIQUID SUGAR FORTIFIER Distal PSV83.1 cm/s Right BINH Prox BINH Prox PSV75.4 cm/s Right BINH Distal BINH Distal PSV87 cm/s Left LIQUID SUGAR FORTIFIER Distal LIQUID SUGAR FORTIFIER Distal PSV 0 cm/s Left BINH Distal BINH Distal PSV11.5 cm/s PRESSURES Right Brachial Brach P133 mmHg Left Brachial Brach P131 mmHg Right Ankle PT AnklePT P157 mmHg Left Ankle PT AnklePT P0 mmHg Right Ankle DP AnkleDP P146 mmHg Left Ankle DP AnkleDP P 49 mmHg Right Great Toe GreatToe P 143 mmHg Left Great Toe GreatToe P 0 mmHg Right JONATHON PT JONATHON PT1.18 Right JONATHON DP JONATHON DP 1.1 Left JONATHON DP JONATHON DP 0.368 Right TBI TBI 1.08 Signed 07/22/2018 11:48 PM Erickson Dominguez MD, RPVI Procedure Note Interface, Radiology Results In - 07/22/2018 11:48 PM CDT Vascular Ultrasound Laboratory Lower Extremity Arterial Duplex Report [id number] [address] Pat.Name: MOISÉS PEREZ.ID: [id number] .Date: 07/22/2018 Refer.MD: SONNY MORTENSEN MD Exam Time: 3:44:00 PM Study Type:LE Arterial Height: 67in Age: 12 1960,57Y Sex: MALE Sonogrphr: Garcia King, RVT, RDMS Pat. Stat.:Inpatient Room: F4755-A Tape Vol: SIL, CPT - 4: 72327, [address]81 Echo Event ID:[id number] Order ID: [id number] Reason for Study:Evaluate for bilateral popliteal aneurysm. PMH of DM, HLD, angina. Procedures:Colorflow, Grayscale/2D, Pulsed wave Doppler SUMMARY: DUPLEX SCAN OBSERVATIONS: RIGHT: There is scattered hard plaque in the common femoral, profunda femoris, superficial femoral and popliteal arteries. Colorflow and triphasic Doppler signals are noted. There is mild calcification noted in the posterior tibial, peroneal and anterior tibial arteries; colorflow and triphasic Doppler signals noted. Bilateral lower extremity arterial exam demonstrates no evidence of significant arterial occlusive disease. The JONATHON's and TBI's are within normal range. hard plaque in the common femoral, profunda femoris and superficial femoral. There is soft echogenic plaque noted in the popliteal artery; absent color and Doppler signals are noted. There is mild calcification noted in the posterior tibial, peroneal and anterior tibial arteries. There is absent color and Doppler signal noted in the proximal and distal posterior tibial artery; flow reconstitution is noted in the mid posterior tibial artery possibly from collateral channels. Absent color and Doppler signals noted in the peroneal artery. Anterior tibial artery is patent with monophasic Doppler signals noted. PRELIMINARY FINDINGS: 1. Occluded left popliteal artery; soft echogenic plaque noted (acute). 2. Occluded left proximal and distal posterior tibial artery. 3. Absent color and Doppler signals noted in the left peroneal artery. 4. Right ankle/brachial indices fall into the normal category. 5. Left ankle/brachial index fall into the severe category on the dorsalis pedis artery. 6. Right toe/brachial index fall into the normal category. 7. Unable to obtain left toe/brachial index due to absent Doppler signals. *Report given to EMMANUEL Johnston at 1901 hr on 07/22/2018. PHYSICIAN INTERPRETATION: Bilateral lower extremity arterial duplex exam demonstrates left popliteal, peroneal and LIQUID SUGAR FORTIFIER significant arterial occlusive disease. Right ankle/brachial indices fall into the normal category. Left ankle/brachial index fall into the severe category on the dorsalis pedis artery. Right toe/brachial index fall into the normal category. MEASUREMENTS: DOPPLER Right COMPUTER FORENSICS INVESTIGATOR prox COMPUTER FORENSICS INVESTIGATOR prox PSV 107 cm/s Right Profunda Profunda PSV 126 cm/s Right SFA Dist SFA Dist PSV 117 cm/s Right SFA Mid SFA Mid PSV 101 cm/s Right SFA Prox SFA Prox PSV 73.1 cm/s Right Pop Dist Pop Dist PSV 92.6 cm/s Right Pop Prox Pop Prox PSV 65.1 cm/s Right LIQUID SUGAR FORTIFIER Dist LIQUID SUGAR FORTIFIER Dist PSV 83.1 cm/s Right LIQUID SUGAR FORTIFIER Mid LIQUID SUGAR FORTIFIER Mid PSV 81.9 cm/s Right LIQUID SUGAR FORTIFIER Prox LIQUID SUGAR FORTIFIER Prox PSV 100 cm/s LIQUID SUGAR FORTIFIER Prox PSV 100 cm/s Right Peroneal Dist Peroneal Dist P 48.2 cm/s Right Peroneal Mid Peroneal Mid PS 58.6 cm/s Right Peroneal Prox Peroneal Prox P 63.7 cm/s Right BINH Dist BINH Dist PSV 87 cm/s Right BINH Mid BINH Mid PSV 79.3 cm/s Left COMPUTER FORENSICS INVESTIGATOR Dist COMPUTER FORENSICS INVESTIGATOR Dist PSV 105 cm/s Left SFA Dist SFA Dist PSV 61.8 cm/s Left SFA Mid SFA Mid PSV 61.8 cm/s Left SFA Prox SFA Prox PSV 73.1 cm/s Left Pop Dist Pop Dist PSV 0 cm/s Left Pop Prox Pop Prox PSV 0 cm/s Pop Prox PSV 0 cm/s Left LIQUID SUGAR FORTIFIER Dist LIQUID SUGAR FORTIFIER Dist PSV 0 cm/s Left LIQUID SUGAR FORTIFIER Mid LIQUID SUGAR FORTIFIER Mid PSV 11.1 cm/s Left LIQUID SUGAR FORTIFIER Prox LIQUID SUGAR FORTIFIER Prox PSV 0 cm/s Left Peroneal Dist Peroneal Dist P 0 cm/s Left Peroneal Mid Peroneal Mid PS 0 cm/s Left Peroneal Prox Peroneal Prox P 22.6 cm/s Left BINH Dist BINH Dist PSV 11.5 cm/s Left BINH Mid BINH Mid PSV 12.2 cm/s Left BINH Prox BINH Prox PSV 9.68 cm/s BINH Prox PSV 9.7 cm/s Left Profunda Profunda PSV 109 cm/s Right COMPUTER FORENSICS INVESTIGATOR Dist COMPUTER FORENSICS INVESTIGATOR Dist PSV 107 cm/s Right LIQUID SUGAR FORTIFIER Distal LIQUID SUGAR FORTIFIER Distal PSV 83.1 cm/s Right BINH Prox BINH Prox PSV 75.4 cm/s Right BINH Distal BINH Distal PSV 87 cm/s Left LIQUID SUGAR FORTIFIER Distal LIQUID SUGAR FORTIFIER Distal PSV 0 cm/s Left BINH Distal BINH Distal PSV 11.5 cm/s PRESSURES Right Brachial Brach P 133 mmHg Left Brachial Brach P 131 mmHg Right Ankle PT AnklePT P 157 mmHg Left Ankle PT AnklePT P 0 mmHg Right Ankle DP AnkleDP P 146 mmHg Left Ankle DP AnkleDP P 49 mmHg Right Great Toe GreatToe P 143 mmHg Left Great Toe GreatToe P 0 mmHg Right JONATHON PT JONATHON PT 1.18 Right JONATHON DP JONATHON DP 1.1 Left JONATHON DP JONATHON DP 0.368 Right TBI TBI 1.08 Signed 07/22/2018 11:48 PM Erickson Dominguez MD, RPVI Performing Organization Address City/State/Zipcode Phone Number [facility] [address] [place] [address] Echocardiogram complete w contrast and 3D if needed (07/22/2018 10:44 AM) Narrative Performed At [facility] Echocardiography Report [address] [place] [address] Pat.Name:MOISÉS PEREZ Pat.ID:[id number] .Date: 07/22/2018 Refer.MD:LILIANA PIÑA MD Exam Time: 9:48:00 AMStudy Type:Routine Echo Height:68inWeight: 180lb BSA: 1.96 m2 DOBAge:1960,57Y Sex: MALEBP:151/80 HR:86 bpmSonogrphr: DAPHNE Coles Pat. Stat.:Inpatient Room:D902 Study Status:Final Echo Event ID:[id number] Order ID:[id number] Reason for Study:PAD History / Clinical:SMOKER, CHEST PAIN Procedures:2D Echo, Colorflow Doppler Race: SUMMARY: LV EF is normal. GLS Avg is impaired at -14.1%. LV filling pressure is normal. Estimated PA systolic pressure is 24 mmHg, assuming a mean RAP of 5 mmHg. FINDINGS: LV: LV size is normal. LV EF is normal. Overall wall motion is normal.Estimated EF is 60-64%. GLS Avg is impaired at -14.1%. RV: RV size is normal. RV systolic function is normal. LA: LA size is normal. RA: RA size is normal. AO: Aortic root diameter is normal. NICOLASA: No pericardial effusion. IAS:Interatrial septum is thickened consistent with lipomatous hypertrophy. AV: Aortic valve not well seen. Mild aortic regurgitation. MV: No structural MV abnormalities noted. PV: No structural PV abnormalities noted. TV: No structural TV abnormalities noted. Mild tricuspid regurgitation Richardson: LV filling pressure is normal. Other:Estimated PA systolic pressure is 24 mmHg, assuming a mean RAPof 5 mmHg. MEASUREMENTS: 2D Parasternal [place] LVOT 1.9 cmLA Ds3.4 cm LVIDd4.4 cmIndex2.2 cm/m Ao An2 cm LVIDs2.9 cm LV Ryuc984 g(122-174) LV%fs 34.1 % LVM Index 65.3 g/m2 IVSd 0.9 cmRWT0.4 LVPWd0.9 cmAo Rtd 3.6 cm Index1.8 cm/m LA Sng Plane LA Area 18.9 cm2(8.8-23.4) LA Vol48.5 ml Index24.7 ml/m LA LngAx 4.9 cm RA Sng Plane RA Area 14.7 cm2(8.3-19.5) RA Vol33.2 ml Index16.9 ml/m RA LngAx 5.6 cm Signed 07/22/2018 02:54 PM Casimiro Quinones M.D. Procedure Note Interface, Radiology Results In - 07/22/2018 2:55 PM CDT Echocardiography Report [address] [place] [address] Pat.Name: MOISÉS PEREZ Pat.ID: [id number] .Date: 07/22/2018 Refer.MD: LILIANA PIÑA MD Exam Time: 9:48:00 AM Study Type:Routine Echo Height: 68in Weight: 180lb BSA: 1.96 m2 Age: 12 1960,57Y Sex: MALE BP: 151/80 HR: 86 bpm Sonogrphr: DAPHNE Coles Pat. Stat.:Inpatient Room: [facility] Study Status:Final Echo Event ID:[id number] Order ID: [id number] Reason for Study:PAD History / Clinical:SMOKER, CHEST PAIN Procedures:2D Echo, Colorflow Doppler Race: SUMMARY: LV EF is normal. GLS Avg is impaired at -14.1%. LV filling pressure is normal. Estimated PA systolic pressure is 24 mmHg, assuming a mean RAP of 5 mmHg. FINDINGS: LV: LV size is normal. LV EF is normal. Overall wall motion is normal. Estimated EF is 60-64%. GLS Avg is impaired at -14.1%. RV: RV size is normal. RV systolic function is normal. LA: LA size is normal. RA: RA size is normal. AO: Aortic root diameter is normal. NICOLASA: No pericardial effusion. IAS: Interatrial septum is thickened consistent with lipomatous hypertrophy. AV: Aortic valve not well seen. Mild aortic regurgitation. MV: No structural MV abnormalities noted. PV: No structural PV abnormalities noted. TV: No structural TV abnormalities noted. Mild tricuspid regurgitation Richardson: LV filling pressure is normal. Other: Estimated PA systolic pressure is 24 mmHg, assuming a mean RAP of 5 mmHg. MEASUREMENTS: 2D Parasternal [place] LVOT 1.9 cm LA Ds 3.4 cm LVIDd 4.4 cm Index 2.2 cm/m Ao An 2 cm LVIDs 2.9 cm LV Mass 128 g (122-174) LV%fs 34.1 % LVM Index 65.3 g/m2 IVSd 0.9 cm RWT 0.4 LVPWd 0.9 cm Ao Rtd 3.6 cm Index 1.8 cm/m LA Sng Plane LA Area 18.9 cm2 (8.8-23.4) LA Vol 48.5 ml Index 24.7 ml/m LA LngAx 4.9 cm RA Sng Plane RA Area 14.7 cm2 (8.3-19.5) RA Vol 33.2 ml Index 16.9 ml/m RA LngAx 5.6 cm Signed 07/22/2018 02:54 PM Casimiro Quinones M.D. Performing Organization Address City/State/Zipcode Phone Number [facility] [address] [place] [address] Pv vein mapping lower extremity (07/22/2018 9:50 AM) Narrative Performed At [facility] Vascular Ultrasound Laboratory Lower Extremity Venous Report [id number] [address] Pat.Name:PEREZMOISÉS CROOK Pat.ID:[id number] .Date: 07/22/2018 Refer.MD:SONNY MORTENSEN MD Exam Time: 8:33:00 AMStudy Type:LE Venous DOBAge:1960,57Y Sex: MALE Sonogrphr: Saray Espitia RDCS, RVT Pat. Stat.:Inpatient Room:[address] TapeVol: ED, Echo Event ID:[id number] Order ID:[id number] Reason for Study:Evaluation for fem-AT bypass Procedures:Colorflow, Grayscale/2D, Pulsed wave Doppler SUMMARY: DUPLEX SCAN OBSERVATIONS Deep VeinsSuperficial Veins RightLeft RightLeft GSV (prox) Chronic, IncompetentNormal CFV Normal Normal (above knee) Femoral Normal Incompetent GSV (dist) Chronic Chronic Profunda Normal Normal (below knee) Popliteal Normal Normal PT (prox) Normal NormalSSV Incompetent Incompetent PT (dist) Normal Normal Peroneal Normal Normal RIGHT:The greater saphenous vein is partially compressible, very small in caliber.Colorflow and Doppler signals demonstrate reflux of thegreater saphenous vein above the knee and of the small saphenous vein.Colorflow and Doppler signals are absent in the greater saphenous vein below the knee. The remaining visualized veins are patent. LEFT: The greater saphenous vein is partially compressible and small in caliber in the mid-distal calf. The remaining visualized veins are patent. Colorflow and Doppler signals demonstrate reflux of the femoral and small saphenous veins. common femoral vein. PRELIMINARY FINDINGS 1. Partial chronic superficial venous thrombosis of the right greater saphenous vein (above and below the knee) and of the left greater saphenousvein (mid-distal calf portions). 2. Incompetent right greater saphenous, left femoral and bilateral small saphenous veins. 3. There is another vein, following the route of the greater saphenous vein in the right calf (measurements in transverse: proximal - 027 cm/0.49 cm; mid - 0.27cm/0.57 cm; distal - 0.39 cm/0.59 cm). 4. See diagram for superficial veins measurements. 5. Enlarged lymph nodes noted in the bilateral groin area. PHYSICIAN INTERPRETATION Venous examination of the both lower extremities demonstrated partial chronic superficial venous thrombosis of the right greater saphenous vein (above and below the knee) and of the left greater saphenous vein (mid-distal calf portions). Venous reflux seen in theright greater saphenous, left femoral and bilateral small saphenous veins. There is another vein, following the route of the greater saphenous vein in the right calf (measurements in transverse: proximal - 027 cm/0.49 cm; mid - 0.27cm/0.57 cm; distal - 0.39 cm/0.59 cm). See diagram for superficial veins measurements. Enlarged lymph nodes noted in the bilateral groin area. MEASUREMENTS: DOPPLER GSV Mid Calf Left GSV Mid Ca 0.1 cm Right GSV Mid C 0.2 cm LSV Upper Calf Left LSV Upper0.4 cm Right LSV Upper 0.3 cm LSV Mid Calf Left LSV Mid Ca 0.4 cm Right LSV Mid C 0.3 cm GSV Mid Thigh Left GSV Mid Th 0.5 cm Right GSV Mid T 0.1 cm GSV Ankle Left GSV Ankle0.1 cm Right GSV Ankle 0.3 cm GSV Upper Calf Left GSV Upper0.3 cm Right GSV Upper 0.3 cm LSV Pop Fossa Left LSV Pop Fo 0.4 cm Right LSV Pop F 0.1 cm GSV Prox Left GSV Prox D 0.6 cm Right GSV Prox0.3 cm GSV Upper Thigh Left GSV Upper0.5 cm Right GSV Upper 0.1 cm GSV Pop Crease Left GSV Pop Cr 0.5 cm Right GSV Pop C 0.2 cm GSV Lower Thigh Left GSV Lower0.5 cm Right GSV Lower 0.1 cm LEVEINS Right SFJ SFJ GSV AP 0.3 cmSFJ Depth 1.44 cm Left SFJ SFJ GSV AP 0.6 cmSFJ Depth 1.61 cm Right Prox Thigh Prox Thigh GSV0.1 cm Right Upper Thigh Upper Thigh Dep1.28 cm Left Prox Thigh Prox Thigh GSV0.5 cm Left Upper Thigh Upper Thigh Dep 1.4 cm Right Mid Thigh Mid Thigh GSV A 0.1 cm Mid Thigh Depth1.13 cm Left Mid Thigh Mid Thigh GSV A 0.5 cm Mid Thigh Depth1.12 cm Right Dist Thigh Dist Thigh GSV0.1 cm Right Lower Thigh Lower Thigh Dep0.93 cm Left Dist Thigh Dist Thigh GSV0.5 cm Left Lower Thigh Lower Thigh Dep1.11 cm Right Knee Knee GSV AP 0.19 cmKnee Depth0.85 cm Left Knee Knee GSV AP0.5 cmKnee Depth1.06 cm Right Prox Calf Prox Calf GSV A 0.2 cm Prox Calf LSV A 0.3 cm Right Upper Calf Upper Calf Dept 0.8 cm Upper Calf Dept0.66 cm Left Prox Calf Prox Calf GSV A 0.3 cm Prox Calf LSV A 0.4 cm Left Upper Calf Upper Calf Dept0.95 cm Upper Calf Dept0.92 cm Right Mid Calf Mid Calf GSV AP0.16 cm Mid Calf LSV AP 0.3 cm Mid Calf Depth 0.7 cmMid Calf Depth0.69 cm Left Mid Calf Mid Calf GSV AP 0.1 cm Mid Calf LSV AP 0.4 cm Mid Calf Depth0.51 cmMid Calf Depth 0.8 cm Right Dist Calf Dist Calf GSV A0.13 cm Dist Calf LSV D0.61 cm Dist Calf LSV A 0.2 cm Right Ankle Ankle Depth 0.54 cm Left Dist Calf Dist Calf GSV A 0.1 cm Dist Calf LSV D0.69 cm Dist Calf LSV A0.23 cm Left Ankle Ankle Depth 0.44 cm Right Popliteal Fossa Popliteal Fossa 0.1 cm Popliteal Fossa0.76 cm Left Popliteal Fossa Popliteal Fossa 0.4 cm Popliteal Fossa1.03 cm Signed 07/22/2018 03:14 PM Erickson Dominguez MD, RPVI Procedure Note Interface, Radiology Results In - 07/22/2018 3:14 PM CDT Vascular Ultrasound Laboratory Lower Extremity Venous Report [id number] [address] Pat.Name: MOISÉS PEREZ Pat.ID: [id number] .Date: 07/22/2018 Refer.MD: SONNY MORTENSEN MD Exam Time: 8:33:00 AM Study Type:LE Venous Age: 13 1960,57Y Sex: MALE Sonogrphr: Saray Espitia RDCS, RVT Pat. Stat.:Inpatient Room: [facility] A Tape Vol: ED, Echo Event ID:[id number] Order ID: [id number] Reason for Study:Evaluation for fem-AT bypass Procedures:Colorflow, Grayscale/2D, Pulsed wave Doppler SUMMARY: DUPLEX SCAN OBSERVATIONS Deep Veins Superficial Veins Right Left Right Left GSV (prox) Chronic, Incompetent Normal CFV Normal Normal (above knee) Femoral Normal Incompetent GSV (dist) Chronic Chronic Profunda Normal Normal (below knee) Popliteal Normal Normal PT (prox) Normal Normal SSV Incompetent Incompetent PT (dist) Normal Normal Peroneal Normal Normal RIGHT: The greater saphenous vein is partially compressible, very small in caliber.Colorflow and Doppler signals demonstrate reflux of the greater saphenous vein above the knee and of the small saphenous vein. Colorflow and Doppler signals are absent in the greater saphenous vein below the knee. The remaining visualized veins are patent. LEFT: The greater saphenous vein is partially compressible and small in caliber in the mid-distal calf. The remaining visualized veins are patent. Colorflow and Doppler signals demonstrate reflux of the femoral and small saphenous veins. common femoral vein. PRELIMINARY FINDINGS 1. Partial chronic superficial venous thrombosis of the right greater saphenous vein (above and below the knee) and of the left greater saphenous vein (mid-distal calf portions). 2. Incompetent right greater saphenous, left femoral and bilateral small saphenous veins. 3. There is another vein, following the route of the greater saphenous vein in the right calf (measurements in transverse: proximal - 027 cm/0.49 cm; mid - 0.27cm/0.57 cm; distal - 0.39 cm/0.59 cm). 4. See diagram for superficial veins measurements. 5. Enlarged lymph nodes noted in the bilateral groin area. PHYSICIAN INTERPRETATION Venous examination of the both lower extremities demonstrated partial chronic superficial venous thrombosis of the right greater saphenous vein (above and below the knee) and of the left greater saphenous vein (mid-distal calf portions). Venous reflux seen in the right greater saphenous, left femoral and bilateral small saphenous veins. There is another vein, following the route of the greater saphenous vein in the right calf (measurements in transverse: proximal - 027 cm/0.49 cm; mid - 0.27cm/0.57 cm; distal - 0.39 cm/0.59 cm). See diagram for superficial veins measurements. Enlarged lymph nodes noted in the bilateral groin area. MEASUREMENTS: DOPPLER GSV Mid Calf Left GSV Mid Ca 0.1 cm Right GSV Mid C 0.2 cm LSV Upper Calf Left LSV Upper 0.4 cm Right LSV Upper 0.3 cm LSV Mid Calf Left LSV Mid Ca 0.4 cm Right LSV Mid C 0.3 cm GSV Mid Thigh Left GSV Mid Th 0.5 cm Right GSV Mid T 0.1 cm GSV Ankle Left GSV Ankle 0.1 cm Right GSV Ankle 0.3 cm GSV Upper Calf Left GSV Upper 0.3 cm Right GSV Upper 0.3 cm LSV Pop Fossa Left LSV Pop Fo 0.4 cm Right LSV Pop F 0.1 cm GSV Prox Left GSV Prox D 0.6 cm Right GSV Prox 0.3 cm GSV Upper Thigh Left GSV Upper 0.5 cm Right GSV Upper 0.1 cm GSV Pop Crease Left GSV Pop Cr 0.5 cm Right GSV Pop C 0.2 cm GSV Lower Thigh Left GSV Lower 0.5 cm Right GSV Lower 0.1 cm LEVEINS Right SFJ SFJ GSV AP 0.3 cm SFJ Depth 1.44 cm Left SFJ SFJ GSV AP 0.6 cm SFJ Depth 1.61 cm Right Prox Thigh Prox Thigh GSV 0.1 cm Right Upper Thigh Upper Thigh Dep 1.28 cm Left Prox Thigh Prox Thigh GSV 0.5 cm Left Upper Thigh Upper Thigh Dep 1.4 cm Right Mid Thigh Mid Thigh GSV A 0.1 cm Mid Thigh Depth 1.13 cm Left Mid Thigh Mid Thigh GSV A 0.5 cm Mid Thigh Depth 1.12 cm Right Dist Thigh Dist Thigh GSV 0.1 cm Right Lower Thigh Lower Thigh Dep 0.93 cm Left Dist Thigh Dist Thigh GSV 0.5 cm Left Lower Thigh Lower Thigh Dep 1.11 cm Right Knee Knee GSV AP 0.19 cm Knee Depth 0.85 cm Left Knee Knee GSV AP 0.5 cm Knee Depth 1.06 cm Right Prox Calf Prox Calf GSV A 0.2 cm Prox Calf LSV A 0.3 cm Right Upper Calf Upper Calf Dept 0.8 cm Upper Calf Dept 0.66 cm Left Prox Calf Prox Calf GSV A 0.3 cm Prox Calf LSV A 0.4 cm Left Upper Calf Upper Calf Dept 0.95 cm Upper Calf Dept 0.92 cm Right Mid Calf Mid Calf GSV AP 0.16 cm Mid Calf LSV AP 0.3 cm Mid Calf Depth 0.7 cm Mid Calf Depth 0.69 cm Left Mid Calf Mid Calf GSV AP 0.1 cm Mid Calf LSV AP 0.4 cm Mid Calf Depth 0.51 cm Mid Calf Depth 0.8 cm Right Dist Calf Dist Calf GSV A 0.13 cm Dist Calf LSV D 0.61 cm Dist Calf LSV A 0.2 cm Right Ankle Ankle Depth 0.54 cm Left Dist Calf Dist Calf GSV A 0.1 cm Dist Calf LSV D 0.69 cm Dist Calf LSV A 0.23 cm Left Ankle Ankle Depth 0.44 cm Right Popliteal Fossa Popliteal Fossa 0.1 cm Popliteal Fossa 0.76 cm Left Popliteal Fossa Popliteal Fossa 0.4 cm Popliteal Fossa 1.03 cm Signed 07/22/2018 03:14 PM Erickson Dominguez MD, RPVI Performing Organization Address City/State/Zipcode Phone Number [facility] [address] [place] [phone] Lactic acid level, SEPSIS - Now and repeat 2x every 3 hours (07/21/2018 11:40 PM )Only the most recent of2 resultswithin the time period is included. Lactic acid 2.6 (H) 0.5 - 2.2 mmol/L [facility] DEPARTMENT OF PATHOLOGY AND GENOMIC MEDICINE Specimen Blood Performing Organization Address [facility] Cent[facility]ode Phone Number [facility] DEPARTMENT OF PATHOLOGY AND [address] [place] [phone] GENOMIC MEDICINE Lipid panel (07/21/2018 11:40 PM) Cholesterol 172 <200 mg/dL [facility] DEPARTMENT OF PATHOLOGY AND GENOMIC MEDICINE Triglycerides 149 <150 mg/dL [facility]PARTMENT OF PATHOLOGY AND GENOMIC MEDICINE HDL cholesterol 36 (L) >40 mg/dL [facility] DEPARTMENT OF PATHOLOGY AND GENOMIC MEDICINE LDL cholesterol 110 (H)Comment: Result <100 mg/dL [facility] DEPARTMENT OF obtained by direct LDL PATHOLOGY AND GENOMIC measurement MEDICINE Lipid panel interpretation SeeBelow [facility] DEPARTMENT OF Comment: PATHOLOGY AND GENOMIC Total Cholesterol (mg/dL) MEDICINE <200 Desirable 555-798Hymgzqeyan-vtlu >=240High Triglycerides (mg/dL) <150 Normal 995-820Vowdhmeaop-wokz 200-499High >=500Very high HDL Cholesterol (mg/dL) <40Low (male) <40Low (female) LDL Cholesterol (mg/dL) <100 Optimal 100-129Near or above optimal 201-306Xppnbwubki-qzbs 160-189High >=190Very high Risk Catergories that modify LDL goals. Risk CatergoriesLDL goal (mg/dL) CHD and CHD risk equivalent<100 (10-year risk >20%) Multiple (2+) risk factors <130 (10-year risk=<20%) 0-1 risk factors <160 (<10-year risk) Defining levels of lipids in metabolic syndrome Triglycerides>=150 mg/dL HDL Cholesterol Men<40 mg/dL Women<40 mg/dL Non-HDL cholesterol is a second target for therapy in persons with high triglycerides (>=200 mg/dL) Specimen Blood Performing Organization Address City/[facility]/Zipcode Phone Number [facility] DEPARTMENT OF PATHOLOGY AND [address] [place] [phone] GENOMIC MEDICINE CTA Abdominal Aorta And Bilateral Iliofemoral Runoff W Wo Contrast (07/21/2018 10:52 PM) Narrative Performed At EXAMINATION:CT ANGIOGRAM ABDOMINAL AORTA AND BILATERAL ILIOFEMORAL HM RADIANT RUNOFF W WO CONTRAST CLINICAL HISTORY:Arterial embolismlower extremity TECHNIQUE: Multiple CT angiographic images of the abdomen, pelvis, and bilateral lower extremities were obtained during intravenous administration of iodinated contrast. Multiple computerized reformatted images as well as 3-D volume rendered images were also obtained. Precontrast images of the abdomen were also obtained. CT scans are performed using radiation dose reduction techniques (iterative reconstruction and/or automated exposure control). Technical factors are evaluated and adjusted to ensure appropriate moderation of exposure. Automated dose management technology is applied to adjust radiation exposure while achieving a diagnostic quality image. COMPARISON:None. FINDINGS: CTA: No aortic aneurysm or dissection. Mild calcific plaque within the abdominal aorta and major branch vessels. [place] of the celiac axis, superior mesenteric artery, bilateral main renal arteries, and inferior mesenteric artery appear widely patent. Single bilateral main renal arteries are noted, though there is relatively early bifurcation of left main renal artery Bilateral lower extremity runoff: Right lower extremity: Mild plaque within right common iliac artery, external iliac artery, internal iliac artery, without significant stenosis. Right common femoral artery, deep femoral artery, and superficial femoral artery without significant plaque. Right popliteal artery, popliteal trifurcation vessels without significant plaque. Normal three-vessel runoff seen to right foot. Left lower extremity: Mild plaque within left common iliac artery. Internal and external iliac arteries, common femoral artery, deep femoral artery, superficial femoral artery without significant plaque. There is occlusion at the level of the left popliteal artery. There is reconstitution within left anterior tibial artery with contrast opacification extending into the dorsalis pedis artery. The left peroneal and posterior tibial arteries are not contrast opacified. Lung bases:Dependent subsegmental atelectasis/scarring. Liver:Diffusely decreased attenuation due to fatty infiltration. Gallbladder and biliary:Gallbladder is unremarkable. Common bile duct is not dilated. Pancreas:Normal. Spleen:Normal. Gastrointestinal:Sigmoid diverticulosis. Large and small bowel are normal in caliber. Appendix is visualized and appears normal. Adrenals:Normal. Kidneys and ureters:No mass or hydronephrosis. Urinary bladder:Well-distended Lymph nodes:No enlarged lymph nodes in the abdomen or pelvis. Peritoneum:No ascites or free air. Reproductive organs:Prostate gland measures 4.9 cm in transverse dimension. Abdominal wall: Mild bilateral gynecomastia. Small fat-containing umbilical hernia. Bones:Mild degenerative changes. IMPRESSION: Occlusion of left popliteal artery. There is reconstitution within left anterior tibial artery. The left peroneal and posterior tibial arteries are not contrast opacified. [facility]-[id number] Procedure Note Hm Interface, Radiology Results Incoming - 07/21/2018 11:24 PM CDT EXAMINATION: CT ANGIOGRAM ABDOMINAL AORTA AND BILATERAL ILIOFEMORAL RUNOFF W WO CONTRAST CLINICAL HISTORY: Arterial embolism lower extremity TECHNIQUE: Multiple CT angiographic images of the abdomen, pelvis, and bilateral lower extremities were obtained during intravenous administration of iodinated contrast. Multiple computerized reformatted images as well as 3-D volume rendered images were also obtained. Precontrast images of the abdomen were also obtained. CT scans are performed using radiation dose reduction techniques (iterative reconstruction and/or automated exposure control). Technical factors are evaluated and adjusted to ensure appropriate moderation of exposure. Automated dose management technology is applied to adjust radiation exposure while achieving a diagnostic quality image. COMPARISON: None. FINDINGS: CTA: No aortic aneurysm or dissection. Mild calcific plaque within the abdominal aorta and major branch vessels. [place] of the celiac axis, superior mesenteric artery, bilateral main renal arteries, and inferior mesenteric artery appear widely patent. Single bilateral main renal arteries are noted, though there is relatively early bifurcation of left main renal artery Bilateral lower extremity runoff: Right lower extremity: Mild plaque within right common iliac artery, external iliac artery, internal iliac artery, without significant stenosis. Right common femoral artery, deep femoral artery, and superficial femoral artery without significant plaque. Right popliteal artery, popliteal trifurcation vessels without significant plaque. Normal three- vessel runoff seen to right foot. Left lower extremity: Mild plaque within left common iliac artery. Internal and external iliac arteries, common femoral artery, deep femoral artery, superficial femoral artery without significant plaque. There is occlusion at the level of the left popliteal artery. There is reconstitution within left anterior tibial artery with contrast opacification extending into the dorsalis pedis artery. The left peroneal and posterior tibial arteries are not contrast opacified. Lung bases: Dependent subsegmental atelectasis/scarring. Liver: Diffusely decreased attenuation due to fatty infiltration. Gallbladder and biliary: Gallbladder is unremarkable. Common bile duct is not dilated. Pancreas: Normal. Spleen: Normal. Gastrointestinal: Sigmoid diverticulosis. Large and small bowel are normal in caliber. Appendix is visualized and appears normal. Adrenals: Normal. Kidneys and ureters: No mass or hydronephrosis. Urinary bladder: Well-distended Lymph nodes: No enlarged lymph nodes in the abdomen or pelvis. Peritoneum: No ascites or free air. Reproductive organs: Prostate gland measures 4.9 cm in transverse dimension. Abdominal wall: Mild bilateral gynecomastia. Small fat-containing umbilical hernia. Bones: Mild degenerative changes. IMPRESSION: Occlusion of left popliteal artery. There is reconstitution within left anterior tibial artery. The left peroneal and posterior tibial arteries are not contrast opacified. [facility]-[id number] Performing Organization Address City/[facility]/Zipcode Phone Number [facility] [address] [place] [phone] Sedimentation rate (07/21/2018 6:33 PM) Sedimentation rate 11 (H) 0 - 10 mm/hr [facility] DEPARTMENT OF PATHOLOGY AND GENOMIC MEDICINE Specimen Blood Performing Organization Address [facility] Phone Number [facility] DEPARTMENT OF PATHOLOGY AND [address] [place] [phone] [facility] Creatine kinase, total (CPK) (07/21/2018 6:33 PM) Creatine kinase 128 39 - 308 U/L [facility] DEPARTMENT OF PATHOLOGY AND GENOMIC MEDICINE Specimen Plasma specimen Performing Organization Address [facility] Phone Number [facility] DEPARTMENT OF PATHOLOGY AND [address] [place] [phone] [facility] Comprehensive metabolic panel (07/21/2018 6:33 PM) Sodium 141 135 - 148 mEq/L [facility] DEPARTMENT OF PATHOLOGY AND GENOMIC MEDICINE Potassium 3.7 3.5 - 5.0 mEq/L [facility] DEPARTMENT OF PATHOLOGY AND GENOMIC MEDICINE Chloride 105 98 - 112 mEq/L [facility] DEPARTMENT OF PATHOLOGY AND GENOMIC MEDICINE CO2 21 (L) 24 - 31 mEq/L [facility] DEPARTMENT OF PATHOLOGY AND GENOMIC MEDICINE Anion gap 15@ANIO 7 - 15 mEq/L [facility] DEPARTMENT OF PATHOLOGY AND GENOMIC MEDICINE BUN 11 6 - 20 mg/dL [facility] DEPARTMENT OF PATHOLOGY AND GENOMIC MEDICINE Creatinine 0.78 0.70 - 1.20 mg/dL [facility] DEPARTMENT OF PATHOLOGY AND GENOMIC MEDICINE Glucose 92 65 - 99 mg/dL [facility] DEPARTMENT OF PATHOLOGY AND GENOMIC MEDICINE Calcium 9.2 8.3 - 10.2 mg/dL [facility] DEPARTMENT OF PATHOLOGY AND GENOMIC MEDICINE Protein 7.8 6.3 - 8.3 g/dL [facility] DEPARTMENT OF Comment: PATHOLOGY AND GENOMIC 4.6-7.0 g/dL MEDICINE 1 week 4.4-7.6 g/dL 7 months-1year5.1-7.3 g/dL 1-2 years5.6-7.5 g/dL >3 years6.0-8.0 g/dL 18-150 6.3-8.3 g/dL Albumin 3.8 3.5 - 5.0 g/dL [facility] DEPARTMENT OF PATHOLOGY AND GENOMIC MEDICINE A/G ratio 1.0 0.7 - 3.8 [facility] DEPARTMENT OF PATHOLOGY AND GENOMIC MEDICINE Alkaline phosphatase 84 40 - 129 U/L [facility] DEPARTMENT OF PATHOLOGY AND GENOMIC MEDICINE AST 26 10 - 50 U/L [facility] DEPARTMENT OF PATHOLOGY AND GENOMIC MEDICINE ALT 73 (H) 5 - 50 U/L [facility] DEPARTMENT OF PATHOLOGY AND GENOMIC MEDICINE Total bilirubin 0.3 0.0 - 1.2 mg/dL [facility] DEPARTMENT OF PATHOLOGY AND GENOMIC MEDICINE Specimen Plasma specimen Performing Organization Address City/[facility] Phone Number [facility] DEPARTMENT OF PATHOLOGY AND [address] [place] [phone] [facility] Blood culture, aerobic & anaerobic (07/21/2018 6:30 PM)Only the most recent of2 resultswithin the time period is included. Blood culture isolate No growth after 5 days of incubation. [facility] DEPARTMENT OF Comment: PATHOLOGY AND GENOMIC Specimen Information MEDICINE Specimen Source: Blood Specimen Site: Hand, left Specimen Blood - Hand, left Performing Organization Address [facility] Phone Number [facility] DEPARTMENT OF PATHOLOGY AND [address] [place] [phone] [facility] XR Foot 3+ Vw Left (07/21/2018 6:14 PM) Narrative Performed At PROCEDURE:XR FOOT 3VW LEFT [facility] CLINICAL HISTORY:r o osteo COMPARISON:None. TECHNIQUE: 3 views of the left foot were performed in the frontal, oblique, and lateral projections FINDINGS: No acute fracture, dislocation, bone destruction, or periosteal reaction is demonstrated about the foot. No soft tissue swelling is identified. No radiopaque foreign body is demonstrated in the soft tissues about the foot.. IMPRESSION: Unremarkable exam. No acute bony abnormality. No radiographic evidence of active osteomyelitis. [facility]-[id number] . Procedure Note Interface, Radiology Results Incoming - 07/21/2018 6:34 PM CDT PROCEDURE: XR FOOT 3 VW LEFT CLINICAL HISTORY: r o osteo COMPARISON: None. TECHNIQUE: 3 views of the left foot were performed in the frontal, oblique, and lateral projections FINDINGS: No acute fracture, dislocation, bone destruction, or periosteal reaction is demonstrated about the foot. No soft tissue swelling is identified. No radiopaque foreign body is demonstrated in the soft tissues about the foot.. IMPRESSION: Unremarkable exam. No acute bony abnormality. No radiographic evidence of active osteomyelitis. [facility]-[id number] . Performing Organization Address City/State/Zipcode Phone Number [facility] [address] [place] [address] CRITICAL CARE (07/21/2018 5:34 PM) Narrative Performed At Larry Koenig MD 07/22/20182:20 PM Critical Care Performed by: LARRY KOENIG Authorized by: LARRY KOENIG Critical care provider statement: Critical care time (minutes):39 Critical care start time:07/21/2018 6:27 PM Critical care end time:07/21/2018 7:02 PM Critical care time was exclusive of:Separately billable procedures and treating other patients and teaching time Critical care was necessary to treat or prevent imminent or life-threatening deterioration of the following conditions:Circulatory failure (vascular occlusion) Critical care was time spent personally by me on the following activities:Development of treatment plan with patient or surrogate, discussions with consultants, evaluation of patient's response to treatment, examination of patient, review of old charts, re-evaluation of patient's condition, ordering and review of radiographic studies, ordering and review of laboratory studies, ordering and performing treatments and interventions and obtaining history from patient or surrogate Kirill 'yes' if you are taking over critical care for this patient from another provider.: no Comments: Pt p/w acute worsening of lower extremity pain with loss of pulses to foot and swelling, vascular surgery consulted, CTA extremity + occlusion, IV heparin bolus and drip, admit for revascularization after 08/31/2017 Insurance Payer Benefit Plan / Group Subscriber ID Type Phone Address [email or web address] /[employer] PPO Home: [id number] [phone] [address]
--- NOTE | 2018-09-01 09:25 | RAD REPORT ---
EXAM DESCRIPTION: RAD - Foot Left 3 View - 09/01/2018 8:51 am CLINICAL HISTORY: Left Foot pain and swelling FINDINGS: No fracture or dislocation is seen. Air is present within the subcutaneous tissues of the first distal phalanx. This could be secondary to an ulceration or infection. There is mild cortical regularity involving the first distal phalanx w hich may indicate mild osteomyelitis.
--- NOTE | 2018-09-01 09:45 | EDPHYS ---
Physician Documentation [facility] Name: Moisés Albarado Age: 57 yrs Sex: Male : 1960 Arrival Date: 09/01/2018 Time: 08:18 Bed 7 Private MD: Niall Grewal V ED Physician Mario Alvarenga HPI: 09/01 09:34 This 57 yrs old Male presents to ER via Ambulatory with complaints of NON jr8 HEALING WOUND. 09:34 The complaints affect the left foot. Onset: The symptoms/episode began/occurred jr8 gradually, 3 month(s) ago. Modifying factors: The symptoms are alleviated by nothing, the symptoms are aggravated by nothing. Associated signs and symptoms: The patient has no apparent associated signs or symptoms. Severity of symptoms: At their worst the symptoms were mild, in the emergency department the symptoms are unchanged. The patient has not experienced similar symptoms in the past. The patient has been recently seen by a physician:. Patient recently saw his hoseman and told him to see wound management or come to ED today after seeing his left 1st digit. Came to ED since wound management is closed. Stated that he has had a non healing wound to that toe for a few months now. Pain has improved since last antibiotic course but still not healing . Historical: - Allergies: 08:27 No Known Allergies; bp - Home Meds: 08:27 Unable to obtain [Active]; bp - PMHx: 08:27 None; bp - Immunization history:: Adult Immunizations up to date. - Social history:: Smoking status: Patient/guardian denies using tobacco. - Ebola Screening: : Patient negative for fever greater than or equal to 101.5 degrees Fahrenheit, and additional compatible Ebola Virus Disease symptoms Patient denies exposure to infectious person Patient denies travel to an Ebola-affected area in the 21 days before illness onset No symptoms or risks identified at this time. ROS: 09:34 Constitutional: Negative for fever, chills, and weight loss. jr8 09:34 MS/extremity: Positive for erythema, swelling, warmth, of the left first toe, open wound . 09:34 All other systems are negative. Exam: 09:34 Eyes: Pupils equal round and reactive to light, extra-ocular motions intact. Lids and jr8 lashes normal. Conjunctiva and sclera are non-icteric and not injected. Cornea within normal limits. Periorbital areas with no swelling, redness, or edema. ENT: Nares patent. No nasal discharge, no septal abnormalities noted. Tympanic membranes are normal and external auditory canals are clear. Oropharynx with no redness, swelling, or masses, exudates, or evidence of obstruction, uvula midline. Mucous membranes moist. Neck: Trachea midline, no thyromegaly or masses palpated, and no cervical lymphadenopathy. Supple, full range of motion without nuchal rigidity, or vertebral point tenderness. No Meningismus. Cardiovascular: Regular rate and rhythm with a normal S1 and S2. No gallops, murmurs, or rubs. Normal PMI, no JVD. No pulse deficits. Respiratory: Lungs have equal breath sounds bilaterally, clear to auscultation and percussion. No rales, rhonchi or wheezes noted. No increased work of breathing, no retractions or nasal flaring. Abdomen/GI: Soft, non-tender, with normal bowel sounds. No distension or tympany. No guarding or rebound. No evidence of tenderness throughout. Back: No spinal tenderness. No costovertebral tenderness. Full range of motion. Skin: Warm, dry with normal turgor. Normal color with no rashes, no lesions, and no evidence of cellulitis. Neuro: Awake and alert, GCS 15, oriented to person, place, time, and situation. Cranial nerves II-XII grossly intact. Motor strength 5/5 in all extremities. Sensory grossly intact. Cerebellar exam normal. Normal gait. 09:34 Musculoskeletal/extremity: Extremities: grossly normal except: noted in the left foot and left first toe: Patient has dry gangrene to top of 1st digit extending down through the nailbed region. Mild erythema to the 1st digit. Mild pain with palpation , ROM: intact in all extremities, Circulation is intact in all extremities. the left first toe decreased sensation. Vital Signs: 08:27 BP 145 / 81; Pulse 88; Resp 16; Temp 98.4; Pulse Ox 98% ; Weight 74.39 kg; Height 5 ft. bp 7 in. (170.18 cm); 09:24 BP 141 / 71; Pulse 81; Resp 17; Pulse Ox 98% on R/A; jb1 08:27 Body Mass Index 25.69 (74.39 kg, 170.18 cm) bp MDM: 08:22 Patient medically screened. jr8 09:34 Data reviewed: vital signs, nurses notes, radiologic studies, plain films. Data jr8 interpreted: Pulse oximetry: on room air is 98 %. Interpretation: normal. Counseling: I had a detailed discussion with the patient and/or guardian regarding: the historical points, exam findings, and any diagnostic results supporting the discharge/admit diagnosis, radiology results, the need for further work-up and treatment in the hospital. ED course: Discussed with patient that there are subtle findings of osteomyelitis of the left 1st toe. Patient should be admitted for this for IV antibiotics and MRI along with surgery consult. Patient stated that he has a lot to do today and needs to talk to his jenelle to make sure he does not lose his job. Requests that he follow up with Dr. Grewal tomorrow for direct admission. Patient understands that this can potentially if not already be a limb threatening problem. Would come back today if acutely worse for some reason. Otherwise would follow up tomorrow . 09/01 08:35 Order name: XRAY Foot LEFT 3 View; Complete Time: 09:26 jr8 Administered Medications: No medications were administered Disposition: 09/01/18 09:44 Patient has left against medical advice. Impression: Osteomyelitis - Left Great Toe, Gangrene Left Great Toe. - Patients states they are going to Home. - Condition is Stable. - Discharge Instructions: Bone and Joint Infections, Adult, Gangrene. Follow up: Niall Grewal MD; When: Tomorrow; Reason: Recheck today's complaints, Continuance of care, Re-evaluation by your physician. - Problem is new. - Symptoms have improved. Addendum: 09/02/2018 15:16 Co-signature as Attending Physician, Mario Alvarenga MD. g s Signatures: Dispatcher [employer] EDMS Jayden Kurtz PA PA jr8 Mario Alvarenga MD MD gs Peltier, Brian, RN RN bp Corrections: (The following items were deleted from the chart) 09/01 09:37 09:34 The complaints affect the right foot, jr8 jr8 09:37 09:34 Patient recently saw his hoseman and told him to see wound management or come jr8 to ED today after seeing his right 1st digit. Came to ED since wound management is closed. Stated that he has had a non healing wound to that toe for a few months now. Pain has improved since last antibiotic course but still not healing . jr8 09:45 09:44 09/01/2018 09:44 Patients has left against medical advice. Impression: jr8 Osteomyelitis - Left Great Toe. Patient states they are going to Home. Condition is Stable. Follow up: Niall Grewal; When: Tomorrow; Reason: Recheck today's complaints, Continuance of care, Re-evaluation by your physician. Problem is new. Symptoms have improved. jr8 10:01 09:45 09/01/2018 09:44 Patients has left against medical advice. Impression: bp Osteomyelitis - Left Great Toe; Gangrene Left Great Toe. Patient states they are going to Home. Condition is Stable. Follow up: Niall Grewal; When: Tomorrow; Reason: Recheck today's complaints, Continuance of care, Re-evaluation by your physician. Problem is new. Symptoms have improved. jr8
--- NOTE | 2018-09-01 09:45 | ER ---
Nurse's Notes [facility] Name: Moisés Albarado Age: 57 yrs Sex: Male : 1960 Arrival Date: 09/01/2018 Time: 08:18 Bed 7 Private MD: Niall Grewal V Diagnosis: Osteomyelitis-Left Great Toe;Gangrene Left Great Toe Presentation: 09/01 08:25 Presenting complaint: Patient states: SENT BY PCP TO WOUND CARE, WOUND CARE REFERRED TO bp ER FOR NON-HEALING WOUND TO LEFT GREAT TOES SINCE . Transition of care: patient was not received from another setting of care. Onset of symptoms is unknown. Risk Assessment: Do you want to hurt yourself or someone else? Patient reports no desire to harm self or others. Initial Sepsis Screen: Does the patient meet any 2 criteria? No. Patient's initial sepsis screen is negative. Does the patient have a suspected source of infection? Yes: Skin breakdown/wound. Care prior to arrival: None. 08:25 Method Of Arrival: Ambulatory bp 08:25 Acuity: BLANKA 3 bp Triage Assessment: 08:27 General: Appears in no apparent distress. comfortable, Behavior is calm, cooperative, bp appropriate for age. Pain: Complains of pain in left first toe. Historical: - Allergies: 08:27 No Known Allergies; bp - Home Meds: 08:27 Unable to obtain [Active]; bp - PMHx: 08:27 None; bp - Immunization history:: Adult Immunizations up to date. - Social history:: Smoking status: Patient/guardian denies using tobacco. - Ebola Screening: : Patient negative for fever greater than or equal to 101.5 degrees Fahrenheit, and additional compatible Ebola Virus Disease symptoms Patient denies exposure to infectious person Patient denies travel to an Ebola-affected area in the 21 days before illness onset No symptoms or risks identified at this time. Screenin:28 Abuse screen: Denies threats or abuse. Denies injuries from another. Nutritional bp screening: No deficits noted. Tuberculosis screening: No symptoms or risk factors identified. Fall Risk None identified. Assessment: 08:28 General: Appears in no apparent distress. comfortable, Behavior is calm, cooperative, bp appropriate for age. Pain: Complains of pain in left first toe. Neuro: Level of Consciousness is awake, alert, obeys commands, Oriented to person, place, time, situation, Appropriate for age. Cardiovascular: No deficits noted. Respiratory: Airway is patent Respiratory effort is even, unlabored, Respiratory pattern is regular, symmetrical. GI: No signs and/or symptoms were reported involving the gastrointestinal system. : No signs and/or symptoms were reported regarding the genitourinary system. EENT: No deficits noted. Derm: Wound noted left first toe Wound is NON-HEALING WOUND, \R\1CM, WITH ESCHAR. Musculoskeletal: Circulation, motion, and sensation intact. Range of motion: intact in all extremities. 09:59 Reassessment: PT DECLINING ADMIT, SIGN OUT AMA. AWARE. PT COUNSELED TO REMAIN BUT bp DECLINED. PT URGED TO RETURN IF S/S WORSEN. LEFT AMBULATORY, AOx4, NO ATAXIA. Vital Signs: 08:27 BP 145 / 81; Pulse 88; Resp 16; Temp 98.4; Pulse Ox 98% ; Weight 74.39 kg; Height 5 ft. bp 7 in. (170.18 cm); 09:24 BP 141 / 71; Pulse 81; Resp 17; Pulse Ox 98% on R/A; jb1 08:27 Body Mass Index 25.69 (74.39 kg, 170.18 cm) bp ED Course: 08:18 Patient arrived in ED. mr 08:19 Niall Grewal MD is Private Physician. mr 08:20 Cade Cooney, RN is Primary Nurse. la1 08:22 Jayden Kurtz PA is PHCP. jr8 08:22 Mario Alvarenga MD is Attending Physician. jr8 08:26 Triage completed. bp 08:27 Arm band placed on. bp 08:28 Patient has correct armband on for positive identification. Bed in low position. Call bp light in reach. Side rails up X2. 08:47 XRAY Foot LEFT 3 View In Process Unspecified. EDMS 09:43 Niall Grewal MD is Referral Physician. jr8 10:00 No provider procedures requiring assistance completed. Patient did not have IV access bp during this emergency room visit. Administered Medications: No medications were administered Outcome: 10:01 AMA AMA form signed bp 10:01 Condition: stable 10:01 Instructed on follow up and referral plans. 10:01 Patient left the ED. bp Signatures: Dispatcher [employer] EDMS Eduardo Tomas jb1 Brenda Nguyen Josh, PA PA jr8 Cade Cooney, RN RN la1 Daron Lyons RN RN bp
[2018-09-01 10:05] VITALS: TEMP 98.4; O2SAT 98
[2018-09-01 10:06] VITALS: BP 141/71
== END 2018-09-01 10:01 | disposition left against medical advice (07) ==
LOC: ER 08:15
DX: M86.9 Osteomyelitis, unspecified (principal); I96 Gangrene, not elsewhere classified
CPT/HCPCS: 99283

== ENCOUNTER 2018-09-06 09:22 | Inpatient (IN) | payer OTHER ==
--- OUTSIDE RECORDS SUMMARY | 2018-09-06 09:24 | XMS REPORT | Clinical Summary ---
:1960 Author Organization [facility] Address [address] [place] [address] Care Team Providers Name Role Phone Niall [...] (peripheral artery disease) Liliana Piña MD after 09/05/2017 Immunizations Name Dates Previously Given Next Due [...] VACCINE Completed 07/23/2018 Implants Implanted Type Area Smutter Device Expiration Model / Identifier Date Serial / Lot Catheter Supp Quick-Cross Str Tip 5fr 0.035in 150cm 3.1fr - [id number] Cardiovascular N/A: Mentor [id number] / Implanted: 07/25/2018 (Quantity not on file) Implants N/A CORPORATION / Catheter Lathe Spotter Otw 4fr 145cm 3x40mm 14 Daniel [place] Es - [id number] Cardiovascular N/A: BSC PERIPHERAL [id number] / Implanted: 07/25/2018 (Quantity not on file) Implants N/A INTERVENTION / VASCULAR ARA 12cm Treatment Zone, 106cm X 0.035in, Ekosonic Mach 4 Endovascular Device [id number] / Implanted: Qty: 1 on 07/24/2018 by Sonny Mortensen MD CORPORATION / Catheter Lathe Spotter Otw 4fr 150cm 2.3u109al [place] [id number] / Implanted: Qty: 1 on 07/25/2018 by Sonny Mortensen MD SCIENTIFIC/NICOLASA / PHERAL VASCULAR (MEDI-TECH) Catheter Lathe Spotter Otw 4fr 150cm 8x376cr Lpr Williams Sl [place] [id number] / Implanted: Qty: 1 on 07/25/2018 by Sonny Mortensen MD SCIENTIFIC/NICOLASA / PHERAL VASCULAR (MEDI-TECH) Catheter Lathe Spotter Williams Otw 3.8fr 135cm [id number] [place] [id number] / Implanted: Qty: 1 on 07/25/2018 by [...] are in SPECTRAL COLOR DOPPLER the results (14027) section. US VEIN MAPPING LOWER Routine 07/22/2018 [...] CDT procedure are in the results section. [facility], E[facility]M Routine 07/21/2018 5:34 Results for this 30-74 MINUTES PM CDT procedure are in the results section. after 09/05/2017 Results Estimated GFR (07/26/2018 10:19 AM)Only the most recent of7 resultswithin the time period is included. Estimated GFR >=90 mL/min/1.73 m2 [facility] DEPARTMENT OF Comment: PATHOLOGY AND GENOMIC CatergoryUnitsInterpretation MEDICINE G1 >=90 Normal or high G2 60-89Mildly decreased [id number] to moderately decreased [id number] to severely decreased G4 15-29Severely decreased G5 <15Kidney failure The eGFR was calculated using the Chronic Kidney Disease Epidemiology Collaboration (CKD-EPI) equation. Interpretation is based on recommendations of the National Kidney Foundation-Kidney Disease Outcomes Quality Initiative (NKF-KDOQI) published in 2014. Specimen Plasma specimen Performing Organization Address City/State/Zipcode Phone Number [facility] DEPARTMENT OF PATHOLOGY AND [address] [place] [address] [employer] MEDICINE Basic metabolic panel (07/26/2018 10:19 AM)Only the most recent of6 resultswithin the time period is included. Sodium 137 135 - 148 mEq/L [facility] DEPARTMENT OF PATHOLOGY AND GENOMIC MEDICINE Potassium 4.2 3.5 - 5.0 mEq/L [facility] DEPARTMENT OF PATHOLOGY AND GENOMIC MEDICINE Chloride 100 98 - 112 mEq/L [facility] DEPARTMENT OF PATHOLOGY AND GENOMIC MEDICINE CO2 24 24 - 31 mEq/L [facility] DEPARTMENT OF PATHOLOGY AND GENOMIC MEDICINE Anion gap 13@ANIO 7 - 15 mEq/L [facility] DEPARTMENT OF PATHOLOGY AND GENOMIC MEDICINE BUN 13 6 - 20 mg/dL [facility] DEPARTMENT OF PATHOLOGY AND GENOMIC MEDICINE Creatinine 0.89 0.70 - 1.20 mg/dL [facility] DEPARTMENT OF PATHOLOGY AND GENOMIC MEDICINE Glucose 107 (H) 65 - 99 mg/dL [facility] DEPARTMENT OF PATHOLOGY AND GENOMIC MEDICINE Calcium 9.3 8.3 - 10.2 mg/dL [facility] DEPARTMENT OF PATHOLOGY AND GENOMIC MEDICINE Specimen Plasma specimen Performing Organization Address [facility] Phone Number [facility] DEPARTMENT OF PATHOLOGY AND [address] [place] [address] Partial thromboplastin time, activated (07/26/2018 10:14 AM)Only the most recent of6 resultswithin the time period is included. PTT 63.4 (H) 23.0 - 36.0 sec [facility] DEPARTMENT OF PATHOLOGY Comment: AND [facility] PTT therapeutic range for unfractionated heparin is 61.0-112.0 seconds which corresponds to Anti-Xa 0.3-0.7 U/ml. Specimen Blood Performing Organization Address [facility] Phone Number [facility] DEPARTMENT OF PATHOLOGY AND [address] [place] [address] POC glucose (07/26/2018 8:27 AM)Only the most recent of12 resultswithin the time period is included. POC glucose 121 (H) 65 - 99 mg/dL [facility] DEPARTMENT OF PATHOLOGY AND Comment: [facility] Notified RN Meter ID: [id number] Daycare Manager: Jarred Mark Performing Organization Address [facility] Phone Number [facility] DEPARTMENT OF PATHOLOGY AND [address] [place] [address] ECG 12 lead (07/26/2018 8:11 AM)Only the most recent of4 resultswithin the time period is included. Ventricular rate 88 [facility] MUSE Atrial rate 88 [facility]USE VA interval 164 [facility] QRSD interval 78 [facility] M[facility] QT interval 388 [facility] QTC interval 469 [facility] MUSE P axis 1 -5 [facility] MUSE QRS axis 1 -55 [facility]USE T wave axis 38 [facility] MUSE EKG impression Normal sinus rhythm-Left axis deviation-Low voltage QRS- Abnormal ECG-In automated comparison with ECG of 25-JUL-2018 05:15,-ST no longer elevated in Anterior leads-T wave inversion no longer evident in [facility] MUSE Inferior leads- Performing Organization Address City/State/Zipcode Phone Number [facility] MELISSA [address] [place] [address] CBC with platelet and differential (07/26/2018 2:54 AM)Only the most recent of9 resultswithin the time period is included. WBC 10.03 4.50 - 11.00 k/uL [facility] DEPARTMENT OF PATHOLOGY AND GENOMIC MEDICINE RBC 4.71 4.40 - 6.00 m/uL [facility] DEPARTMENT OF PATHOLOGY AND GENOMIC MEDICINE HGB 13.9 (L) 14.0 - 18.0 g/dL [facility] DEPARTMENT OF PATHOLOGY AND GENOMIC MEDICINE HCT 42.2 41.0 - 51.0 % [facility] DEPARTMENT OF PATHOLOGY AND GENOMIC MEDICINE MCV 89.6 82.0 - 100.0 fL [facility] DEPARTMENT OF PATHOLOGY AND GENOMIC MEDICINE MCH 29.5 27.0 - 34.0 pg [facility] DEPARTMENT OF PATHOLOGY AND GENOMIC MEDICINE MCHC 32.9 31.0 - 37.0 g/dL [facility] DEPARTMENT OF PATHOLOGY AND GENOMIC MEDICINE RDW - SD 44.6 37.0 - 55.0 fL [facility] DEPARTMENT OF PATHOLOGY AND GENOMIC MEDICINE MPV 9.6 8.8 - 13.2 fL [facility] DEPARTMENT OF PATHOLOGY AND GENOMIC MEDICINE Platelet count 199 150 - 400 k/uL [facility] DEPARTMENT OF PATHOLOGY AND GENOMIC MEDICINE Nucleated RBC 0.00 /100 WBC [facility] DEPARTMENT OF PATHOLOGY AND GENOMIC MEDICINE Neutrophils 63.1 39.0 - 69.0 % [facility] DEPARTMENT OF PATHOLOGY AND GENOMIC MEDICINE Lymphocytes 22.7 (L) 25.0 - 45.0 % [facility] DEPARTMENT OF PATHOLOGY AND GENOMIC MEDICINE Monocytes 7.8 0.0 - 10.0 % [facility] DEPARTMENT OF PATHOLOGY AND GENOMIC MEDICINE Eosinophils 5.5 (H) 0.0 - 5.0 % [facility] DEPARTMENT OF PATHOLOGY AND GENOMIC MEDICINE Basophils 0.6 0.0 - 1.0 % [facility] DEPARTMENT OF PATHOLOGY AND GENOMIC MEDICINE Immature granulocytes 0.3Comment: 0.0 - 1.0 % [facility] DEPARTMENT OF "Immature PATHOLOGY AND GENOMIC granulocytes" MEDICINE (promyelocytes, myelocytes, metamyelocytes) Specimen Blood Performing Organization Address City/State/Zipcode Phone Number [facility] DEPARTMENT OF PATHOLOGY AND [address] [place] [address] GENOMIC MEDICINE Hemoglobin A1c (07/25/2018 6:10 PM)Only the most recent of2 resultswithin the time period is included. Hemoglobin A1C 6.5 (H) 4.0 - 5.6 % [facility] DEPARTMENT OF PATHOLOGY Comment: AND GENOMIC MEDICINE HbA1c cutoffs for diagnosing diabetes: 4.0% - 5.6%=normal 5.7% - 6.4%=increased risk for diabetes (prediabetes) >=6.5%=diabetes Goals for glycemic control (ADA 2016) < 7.0%Target for non adults with diabetes. More or less stringent targets may be appropriate for individual patients. <7.5% Target for Children and adolescents with type 1 diabetes. Performing Organization Address City/[facility] Mex[facility] Phone Number [facility] DEPARTMENT OF PATHOLOGY AND [address] [place] [address] GENOMIC MEDICINE Activated clotting time (07/25/2018 9:25 AM)Only the most recent of7 resultswithin the time period is included. Activated clotting time 106 96 - 152 sec [facility] DEPARTMENT OF Comment: PATHOLOGY AND GENOMIC Meter ID: [id number] MEDICINE Daycare Manager: Haleigh Izaguirre Performing Organization Address City/[facility] Mex[facility] Phone Number [facility] DEPARTMENT OF PATHOLOGY AND [address] [place] [address] XR Chest 1 Vw Portable (07/25/2018 6:44 AM)Only the most recent of2 resultswithin the time period is included. Narrative Performed At EXAMINATION: XR CHEST 1 VW PORTABLE [facility] INDICATION: ICU ptstable with no clinical status changes COMPARISON: 07/24/2018 IMPRESSION: No new airspace disease. No pleural effusion or pneumothorax. Mildly enlarged cardiac silhouette, unchanged, in part due to portable technique. [facility]-[id number] Procedure Note Interface, Radiology Results Incoming - 07/25/2018 7:22 AM CDT EXAMINATION: XR CHEST 1 VW PORTABLE INDICATION: ICU pt stable with no clinical status changes COMPARISON: 07/24/2018 IMPRESSION: No new airspace disease. No pleural effusion or pneumothorax. Mildly enlarged cardiac silhouette, unchanged, in part due to portable technique. [facility]-[id number] Performing Organization Address City/[facility]/Zipcode Phone Number [facility] [address] [place] [phone] Fibrinogen (07/25/2018 4:30 AM)Only the most recent of3 resultswithin the time period is included. Fibrinogen 374 200 - 450 mg/dL [facility] DEPARTMENT OF PATHOLOGY AND GENOMIC MEDICINE Specimen Blood Performing Organization Address City/[facility] Phone Number [facility] DEPARTMENT OF PATHOLOGY AND [address] [place] [address] Prothrombin time with INR (07/25/2018 1:38 AM)Only the most recent of3 resultswithin the time period is included. Prothrombin time 14.7 12.0 - 15.0 sec [facility] DEPARTMENT OF PATHOLOGY AND GENOMIC MEDICINE INR 1.1 [facility] DEPARTMENT OF Comment: PATHOLOGY AND GENOMIC The International Normalized Ratio (INR) is a therapeutic MEDICINE monitoring tool for patients who are stable on oral anticoagulant therapy. An INR of 2.0-3.0 is suggested for deep vein thrombosis/pulmonary embolism. Specimen Blood Performing Organization Address [facility] Phone Number [facility] DEPARTMENT OF PATHOLOGY AND [address] [place] [address] Anti Xa, unfractionated (07/25/2018 1:38 AM)Only the most recent of7 resultswithin the time period is included. Anti Xa, unfractionated <0.10 (L)Comment: 0.30 - 0.70 U/mL [facility] DEPARTMENT OF Therapeutic Range: PATHOLOGY AND GENOMIC 0.30 - 0.70 U/mL MEDICINE Specimen Blood Performing Organization Address [facility] Phone Number [facility] DEPARTMENT OF PATHOLOGY AND [address] [place] [address] GENOMIC MEDICINE Type and screen (07/25/2018 1:38 AM)Only the most recent of2 resultswithin the time period is included. ABO grouping B [facility] DEPARTMENT OF PATHOLOGY AND GENOMIC MEDICINE Rh type POS [facility] DEPARTMENT OF PATHOLOGY AND GENOMIC MEDICINE Antibody screen (gel) NEG [facility] DEPARTMENT OF PATHOLOGY AND GENOMIC MEDICINE Specimen Blood Performing Organization Address City/[facility] Phone Number [facility] DEPARTMENT OF PATHOLOGY AND [address] [place] [phone] GENOMIC MEDICINE Phosphorus level (07/25/2018 1:38 AM)Only the most recent of2 resultswithin the time period is included. Phosphorus 2.8 2.4 - 4.5 mg/dL [facility] DEPARTMENT OF PATHOLOGY AND GENOMIC MEDICINE Specimen Plasma specimen Performing Organization Address [facility] Phone Number [facility] DEPARTMENT OF PATHOLOGY AND [address] [place] [address] Magnesium level (07/25/2018 1:38 AM)Only the most recent of2 resultswithin the time period is included. Magnesium 2.5 1.6 - 2.6 mg/dL [facility] DEPARTMENT OF PATHOLOGY AND GENOMIC MEDICINE Specimen Plasma specimen Performing Organization Address [facility] Phone Number [facility] DEPARTMENT OF PATHOLOGY AND [address] [place] [address] Ionized calcium (07/25/2018 1:38 AM)Only the most recent of2 resultswithin the time period is included. pH 7.44 [facility] DEPARTMENT OF PATHOLOGY AND GENOMIC MEDICINE Ionized calcium 1.22 1.11 - 1.32 mmol/L [facility] DEPARTMENT OF PATHOLOGY AND GENOMIC MEDICINE Specimen Plasma specimen Performing Organization Address [facility] Phone Number [facility] DEPARTMENT OF PATHOLOGY AND [address] [place] [address] CTA Chest W Wo Contrast (07/23/2018 1:56 [...] effusion. No lymphadenopathy. IMPRESSION: No aortic aneurysm/dissection. [facility]-[id number] Procedure Note Interface, Radiology Results Incoming - [...] effusion. No lymphadenopathy. IMPRESSION: No aortic aneurysm/dissection. [facility]-[id number] Performing Organization Address [facility] Phone Number [facility] [address] [place] [address] Cv ecg exercise stress (no imaging) (07/23/2018 1:51 PM) Resting HR 75 [facility] MUSE Resting BP 157 [facility] MUSE Peak MET Achieved 1.0 [facility] MUSE Protocol Name REGADENO [facility] MUSE Time in Exercise Phase 00:01:00 [facility] MUSE Max Systolic BP 157 H MUSE Max Diastolic BP 79 H MUSE Max Heart Rate 106 H MUSE Max Predicted Heart Rate 164 [facility] MUSE Target HR Formula (220 - Age)*100% H MUSE Test Indication PRE OP CLEARANCE [facility] MUSE Arrhy During Ex [facility] MUSE ECG Interp Before EX [facility] MUSE ECG Interp During Ex H MUSE Ex Summary Comment [facility] MUSE Overall HR Response to [facility] MUSE Exercise Overall BP Response To [facility] MUSE Exercise Reason for Termination [facility] MUSE Stress Test Impression Waveform interpreted in report [facility] MUSE associated with image study. No interpretation is provided as part of this Stress ECG report.-Electronically Signed By Gaby MURRAY, Eduardo De La Fuente ([id number]), video news editor Mateus Teague ([id number]) on 07/23/2018 3:19:39 PM Performing Organization Address [facility] Phone Number [facility] [employer] [address] [place] [address] Nm myocardial perfusion (07/23/2018 1:51 PM) Narrative Performed At [facility] Nuclear Cardiology and Cardiac CT [address] [address] Myocardial Perfusion Imaging Report Stress ECG tracings are available in [employer], [employer] and [employer] All ECG interpretations are included in this report Pat.Name:MOISÉS PEREZ Pat.ID:[id number] .Date: 07/23/2018 Refer.MD:LILIANA PIÑA MD Exam Time: 9:58:00 AM Study Type:Myocardial Perfusion Imaging Height:67inBSA: 1.86 m2 DOBAge:1960,57Y Sex: MALE BP:157/79HR: 72 bpm HCT: 39.9 % Nuclear Tech:Lauren Arndt ASSISTANT ANALYST, ARRT/Salazar Wray ASSISTANT ANALYST Pat. Stat.:Inpatient Room:[facility] Nuclear Event ID:[id number] Order ID:[id number] Reason for Study:Pre-Op clearance History / Clinical:Hyperlipidemia, [...] saline flush ECG: Normal Sinus Rhythm, Right [place] Deviation HR:72 BP:157/79 Stress Test Results: Target [...] PM CDT Nuclear Cardiology and Cardiac CT [address] [place] [address] Myocardial Perfusion Imaging Report Stress ECG tracings are available in [employer], [employer] and [facility] All ECG interpretations are included in this report Pat.Name: MOISÉS PEREZ Pat.ID: [id number] .Date: 07/23/2018 Refer.MD: LILIANA PIÑA MD Exam Time: 9:58:00 AM Study Type:Myocardial Perfusion Imaging Height: 67in BSA: 1.86 m2 Age: 13 1960,57Y Sex: MALE BP: 157/79 HR: 72 bpm HCT: 39.9 % Nuclear Tech:KYLIE Cabrera, [facility] CORPORATIONDakota/Salazar BROOKSMT Pat. Stat.:Inpatient Room: D902-A Nuclear Event ID:[id number] Order ID: [id number] Reason for Study:Pre-Op clearance History / Clinical:Hyperlipidemia, [...] saline flush ECG: Normal Sinus Rhythm, Right [place] Deviation HR: 72 BP: 157/79 Stress Test Results: Target HR: 139 Symptoms and Complications: Arrhythmias: None Terminated: As per Regadenoson protocol Symptoms: Shortness of breath Complications: none Conclusions: Normal heart rate response to pharmacological stress, Normal blood pressure response to pharmacological stress Stress ECG Interp: No ischemic ST segment change occurred with stress. Signed 07/23/2018 05:38 PM Eduardo Griffin MD Performing Organization Address City/[facility]/Zipcode Phone Number [facility] [address] [place] [address] Hexagonal phospholipid (07/23/2018 1:30 PM) Hexagonal phospholipid tube #1 55.5 sec [facility] DEPARTMENT OF PATHOLOGY AND GENOMIC MEDICINE Hexagonal phospholipid tube #2 50.7 sec [facility] DEPARTMENT OF PATHOLOGY AND GENOMIC MEDICINE Tube 1 - 2 4.8 0.0 - 8.0 sec [facility] DEPARTMENT OF PATHOLOGY AND GENOMIC MEDICINE LA interpretation Negative [facility] DEPARTMENT OF PATHOLOGY AND GENOMIC MEDICINE Specimen Blood Performing Organization Address [facility] Mex[facility] Phone Number [facility] DEPARTMENT OF PATHOLOGY AND [address] [place] [address] [facility] Prothrombin mutation, factor II, by PCR (07/23/2018 1:30 PM) Prothrombin gene mutation Normal Normal [facility] DEPARTMENT OF PATHOLOGY AND GENOMIC MEDICINE Prothrombin gene mutation See link below for PDF [facility] DEPARTMENT OF Lab ReportComment: Case PATHOLOGY AND GENOMIC Number: [id number] MEDICINE Specimen Blood Performing Organization Address [facility] Phone Number [facility] DEPARTMENT OF PATHOLOGY AND [address] [place] [phone] [facility] Beta-2 glycoprotein 1 antibody, IgG and IgM (07/23/2018 1:30 PM) Beta-2 glycoprotein 1 <9.4 0.0 - 20.0 [facility] DEPARTMENT OF antibody, IgG Comment: PATHOLOGY AND GENOMIC Negative=<20.0 [facility] MEDICINE Positive >20.0 [facility] Beta-2 glycoprotein 1 <9.4 0.0 - 20.0 [facility] DEPARTMENT OF antibody, IgM Comment: PATHOLOGY AND GENOMIC Negative=<20.0 [facility] MEDICINE Positive >20.0 [facility] Specimen Blood Performing Organization Address [facility] Phone Number [facility] DEPARTMENT OF PATHOLOGY AND [address] [place] [phone] [facility] Functional protein S (07/23/2018 1:30 PM) Functional protein S 138 74 - 160 % [facility] DEPARTMENT OF Comment: PATHOLOGY AND GENOMIC Functional Protein S performed.If result is decreased Total MEDICINE and Free Protein S Antigen will be performed. Specimen Blood Performing Organization Address City/[facility]/Zipcode Phone Number [facility] DEPARTMENT OF PATHOLOGY AND [address] [place] [phone] [place] [address] MEDICINE Functional protein C (07/23/2018 1:30 PM) Functional protein C 133 70 - 165 % [facility] DEPARTMENT OF PATHOLOGY AND GENOMIC MEDICINE Specimen Blood Performing Organization Address [facility] Phone Number [facility] DEPARTMENT OF PATHOLOGY AND [address] [place] [phone] [place] [address] Lupus anticoagulant panel (07/23/2018 1:30 PM) Prothrombin time 13.1 12.0 - 15.0 sec [facility] DEPARTMENT OF PATHOLOGY AND GENOMIC MEDICINE INR 1.0 [facility] DEPARTMENT OF Comment: PATHOLOGY AND The International Normalized Ratio (INR) is a therapeutic GENOMIC MEDICINE monitoring tool for patients who are stable on oral anticoagulant therapy. An INR of 2.0-3.0 is suggested for deep vein thrombosis/pulmonary embolism. PTT 62.5 (H) 23.0 - 36.0 sec [facility] DEPARTMENT OF Comment: PATHOLOGY AND PTT therapeutic range for unfractionated heparin is GENOMIC MEDICINE 61.0-112.0 seconds which corresponds to Anti-Xa 0.3-0.7 U/ml. PTT lupus anticoagulant 55.3 (H) 27.0 - 38.0 sec [facility] DEPARTMENT OF Comment: PATHOLOGY AND Lupus [...] diagnosis. DRVVT 33.3 29.0 - 46.0 sec [facility] DEPARTMENT OF PATHOLOGY AND [employer] MEDICINE Specimen Blood Performing Organization Address [facility] Mex[facility]ode Phone Number [facility] DEPARTMENT OF PATHOLOGY AND [address] [place] [phone] [facility] Cardiolipin antibodies (07/23/2018 1:30 PM) Cardiolipin IgG 2 0 - 14 GPL [facility] DEPARTMENT OF PATHOLOGY AND Comment: GENOMIC MEDICINE Negative=<15 GPL Indeterminate=15-20 GPL Positive=>20 GPL Cardiolipin IgM 4 0 - 12 MPL [facility] DEPARTMENT OF PATHOLOGY AND Comment: GENOMIC MEDICINE Negative=<13 MPL Indeterminate=13-20 MPL Positive=>20 MPL Specimen Blood Performing Organization Address [facility] Phone Number [facility] DEPARTMENT OF PATHOLOGY AND [address] [place] [phone] [place] [address] Factor V leiden by PCR (07/23/2018 1:30 PM) Factor V Leiden Normal [facility] DEPARTMENT OF PATHOLOGY AND GENOMIC MEDICINE Factor V Leiden See link below for PDF Lab [facility] DEPARTMENT OF PATHOLOGY AND ReportComment: Case Number: [facility] [id number] Specimen Blood Performing Organization Address [facility] [place] Phone Number [facility] DEPARTMENT OF PATHOLOGY AND [address] [place] [id number] [place] [address] Antithrombin III level (07/23/2018 1:30 PM) Antithrombin III 79 (L) 80 - 130 % [facility] DEPARTMENT OF PATHOLOGY AND GENOMIC MEDICINE Specimen Blood Performing Organization Address [facility] [place] Phone Number [facility] DEPARTMENT OF PATHOLOGY AND [address] [place] [address] [facility] Factor VIII assay (07/23/2018 1:30 PM) Factor VIII activity 133 60 - 150 % [facility] DEPARTMENT OF PATHOLOGY AND [employer] [facility] Specimen Blood Performing Organization Address [facility] [place] Phone Number [facility] DEPARTMENT OF PATHOLOGY AND [address] [place] [address] [facility] C-reactive protein (07/23/2018 1:30 PM) CRP 1.73 (H) 0.00 - 0.50 mg/dL [facility] DEPARTMENT OF PATHOLOGY AND GENOMIC MEDICINE Specimen Plasma specimen Performing Organization Address [facility] [place] Phone Number [facility] DEPARTMENT OF PATHOLOGY AND [address] [place] [address] [facility] Vancomycin level, trough (07/23/2018 1:30 PM) Vancomycin, trough 6.8 (L) 10.0 - 20.0 ug/mL [facility] DEPARTMENT OF Comment: PATHOLOGY AND GENOMIC Therapeutic Ranges: MEDICINE Peak 30.0 - 40.0 ug/mL Oshuly38.0 - 20.0 ug/mL Specimen Serum Performing Organization Address City/[facility] Phone Number [facility] DEPARTMENT OF PATHOLOGY AND [address] [facility] [place] [address] [employer] [facility] Pv duplex arterial lower extremity (07/22/2018 5:33 PM) Narrative Performed At [facility] Vascular Ultrasound Laboratory Lower Extremity Arterial Duplex Report [address] [facility], [facility] [address], [place] [address] Pat.Name:MOISÉS PEREZ Pat.ID:[id number] .Date: 07/22/2018 Refer.MD:SONNY MORTENSEN MD Exam Time: 3:44:00 PMStudy Type:LE Arterial Height:67inDOBAge: 1960,57Y Sex: MALESonogrphr: Garcia King RVT, [facility] Pat. Stat.:Inpatient Room:[address] TapeVol: SIL, CPT - 4: 38616, 27204 Echo Event ID:[id number] Order ID:[id number] Reason for Study:Evaluate for bilateral popliteal aneurysm. 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 Right ankle/brachial indices fall into the normal category. Left ankle/brachial index fall into the severe category on the dorsalis pedis artery.Right toe/brachial index fall into the normal category. MEASUREMENTS: DOPPLER Right CREDIT RISK MANAGEMENT DIRECTOR prox CREDIT RISK MANAGEMENT DIRECTOR prox PSV 107 cm/s Right Profunda Profunda PSV 126 cm/s Right SFA Dist SFA Dist PSV 117 cm/s Right SFA Mid SFA Mid DWD121 cm/s Right SFA Prox SFA Prox PSV73.1 cm/s Right Pop Dist Pop Dist PSV92.6 cm/s Right Pop Prox Pop Prox PSV65.1 cm/s Right BLOCK HAND Dist BLOCK HAND Dist PSV83.1 cm/s Right BLOCK HAND Mid BLOCK HAND Mid PSV 81.9 cm/s Right BLOCK HAND Prox BLOCK HAND Prox PSV 100 cm/sPTA Prox PSV 100 cm/s Right Peroneal Dist Peroneal Dist P48.2 cm/s Right Peroneal Mid Peroneal Mid PS58.6 cm/s Right Peroneal Prox Peroneal Prox P63.7 cm/s Right BINH Dist BINH Dist PSV87 cm/s Right BINH Mid BINH Mid PSV 79.3 cm/s Left CREDIT RISK MANAGEMENT DIRECTOR Dist CREDIT RISK MANAGEMENT DIRECTOR Dist PSV 105 cm/s Left SFA Dist SFA Dist PSV61.8 cm/s Left SFA Mid SFA Mid PSV 61.8 cm/s Left SFA Prox SFA Prox PSV73.1 cm/s Left Pop Dist Pop Dist PSV 0 cm/s Left Pop Prox Pop Prox PSV 0 cm/sPop Prox PSV 0 cm/s Left BLOCK HAND Dist BLOCK HAND Dist PSV 0 cm/s Left BLOCK HAND Mid BLOCK HAND Mid PSV 11.1 cm/s Left BLOCK HAND Prox BLOCK HAND Prox PSV 0 cm/s Left Peroneal Dist Peroneal Dist P 0 cm/s Left Peroneal Mid Peroneal Mid PS 0 cm/s Left Peroneal Prox Peroneal Prox P22.6 cm/s Left BINH Dist BINH Dist PSV11.5 cm/s Left BINH Mid BINH Mid PSV 12.2 cm/s Left BINH Prox BINH Prox PSV9.68 cm/sATA Prox PSV 9.7 cm/s Left Profunda Profunda PSV 109 cm/s Right CREDIT RISK MANAGEMENT DIRECTOR Dist CREDIT RISK MANAGEMENT DIRECTOR Dist PSV 107 cm/s Right BLOCK HAND Distal BLOCK HAND Distal PSV83.1 cm/s Right BINH Prox BINH Prox PSV75.4 cm/s Right BINH Distal BINH Distal PSV87 cm/s Left BLOCK HAND Distal BLOCK HAND Distal PSV 0 cm/s Left BINH Distal [...] Ultrasound Laboratory Lower Extremity Arterial Duplex Report [address] [address] Pat.Name: MOISÉS PEREZ.ID: [id number] .Date: 07/22/2018 Refer.MD: SONNY MORTENSEN MD Exam Time: 3:44:00 PM Study Type:LE Arterial Height: 67in Age: 13 1960,57Y Sex: MALE Sonogrphr: Garcia King, RVT, RDMS Pat. 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 [...] duplex exam demonstrates left popliteal, peroneal and BLOCK HAND significant arterial occlusive disease. Right ankle/brachial indices fall into the normal category. Left ankle/brachial index fall into the severe category on the dorsalis pedis artery. Right toe/brachial index fall into the normal category. MEASUREMENTS: DOPPLER Right CREDIT RISK MANAGEMENT DIRECTOR prox CREDIT RISK MANAGEMENT DIRECTOR prox PSV 107 cm/s Right Profunda Profunda PSV 126 cm/s Right SFA Dist SFA Dist PSV 117 cm/s Right SFA Mid SFA Mid PSV 101 cm/s Right SFA Prox SFA Prox PSV 73.1 cm/s Right Pop Dist Pop Dist PSV 92.6 cm/s Right Pop Prox Pop Prox PSV 65.1 cm/s Right BLOCK HAND Dist BLOCK HAND Dist PSV 83.1 cm/s Right BLOCK HAND Mid BLOCK HAND Mid PSV 81.9 cm/s Right BLOCK HAND Prox BLOCK HAND Prox PSV 100 cm/s BLOCK HAND Prox PSV 100 cm/s Right Peroneal Dist Peroneal Dist P 48.2 cm/s Right Peroneal Mid Peroneal Mid PS 58.6 cm/s Right Peroneal Prox Peroneal Prox P 63.7 cm/s Right BINH Dist BINH Dist PSV 87 cm/s Right BINH Mid BINH Mid PSV 79.3 cm/s Left CREDIT RISK MANAGEMENT DIRECTOR Dist CREDIT RISK MANAGEMENT DIRECTOR Dist PSV 105 cm/s Left SFA Dist SFA Dist PSV 61.8 cm/s Left SFA Mid SFA Mid PSV 61.8 cm/s Left SFA Prox SFA Prox PSV 73.1 cm/s Left Pop Dist Pop Dist PSV 0 cm/s Left Pop Prox Pop Prox PSV 0 cm/s Pop Prox PSV 0 cm/s Left BLOCK HAND Dist BLOCK HAND Dist PSV 0 cm/s Left BLOCK HAND Mid BLOCK HAND Mid PSV 11.1 cm/s Left BLOCK HAND Prox BLOCK HAND Prox PSV 0 cm/s Left Peroneal Dist [...] Left Profunda Profunda PSV 109 cm/s Right CREDIT RISK MANAGEMENT DIRECTOR Dist CREDIT RISK MANAGEMENT DIRECTOR Dist PSV 107 cm/s Right BLOCK HAND Distal BLOCK HAND Distal PSV 83.1 cm/s Right BINH Prox BINH Prox PSV 75.4 cm/s Right BINH Distal BINH Distal PSV 87 cm/s Left BLOCK HAND Distal BLOCK HAND Distal PSV 0 cm/s Left BINH Distal [...] RPVI Performing Organization Address City/State/Zipcode Phone Number [facility] [address] [place] [address] Echocardiogram complete w contrast and 3D if needed (07/22/2018 10:44 AM) Narrative Performed At [facility] Echocardiography Report [address] [place] [address] Pat.Name:MOISÉS PEREZ Pat.ID:[id number] .Date: 07/22/2018 Refer.MD:LILIANA PIÑA MD Exam Time: 9:48:00 AMStudy Type:Routine Echo Height:68inWeight: 180lb BSA: 1.96 m2 DOBAge:1960,57Y Sex: MALEBP:151/80 HR:86 bpmSonogrphr: DAPHNE Coles Pat. Stat.:Inpatient Room:D902 Study Status:Final Echo Event ID:[id number] Order ID:[id number] Reason for Study:PAD History / Clinical:SMOKER, CHEST [...] RAPof 5 mmHg. MEASUREMENTS: 2D Parasternal [place] LVOT 1.9 cmLA Ds3.4 cm LVIDd4.4 cmIndex2.2 cm/m Ao An2 cm LVIDs2.9 cm LV Adgz195 g(122-174) LV%fs 34.1 % LVM Index 65.3 [...] 07/22/2018 2:55 PM CDT Echocardiography Report [address] [place] [address] Pat.Name: MOISÉS PEREZ Pat.ID: [id number] .Date: 07/22/2018 Refer.MD: LILIANA PIÑA MD Exam Time: 9:48:00 AM Study Type:Routine Echo Height: 68in Weight: 180lb BSA: 1.96 m2 Age: 13 1960,57Y Sex: MALE BP: 151/80 HR: 86 bpm Sonogrphr: DAPHNE Coles Pat. Stat.:Inpatient Room: [facility] Study Status:Final Echo Event ID:[id number] Order ID: [id number] Reason for Study:PAD History / Clinical:SMOKER, CHEST [...] of 5 mmHg. MEASUREMENTS: 2D Parasternal [place] LVOT 1.9 cm LA Ds 3.4 cm [...] M.D. Performing Organization Address City/State/Zipcode Phone Number [facility] [address] [place] [address] Pv vein mapping lower extremity (07/22/2018 9:50 AM) Narrative Performed At [facility] Vascular Ultrasound Laboratory Lower Extremity Venous Report [address] [address] Pat.Name:PEREZMOISÉS CROOK Pat.ID:[id number] .Date: 07/22/2018 Refer.MD:SONNY MORTENSEN MD Exam Time: 8:33:00 AMStudy Type:LE Venous DOBAge:1960,57Y Sex: MALE Sonogrphr: Saray Espitia RDCS, RVT Pat. Stat.:Inpatient Room:[address] TapeVol: ED, Echo Event ID:[id number] Order ID:[id number] Reason for Study:Evaluation for fem-AT bypass Procedures:Colorflow, [...] Vascular Ultrasound Laboratory Lower Extremity Venous Report [address] [address] Pat.Name: MOISÉS PEREZ Pat.ID: [id number] .Date: 07/22/2018 Refer.MD: SONNY MORTENSEN MD Exam Time: 8:33:00 AM Study Type:LE Venous Age: 13 1960,57Y Sex: MALE Sonogrphr: Saray Espitia RDCS, RVT Pat. Stat.:Inpatient Room: [facility] A Tape Vol: ED, Echo Event ID:[id number] Order ID: [id number] Reason for Study:Evaluation for fem-AT bypass Procedures:Colorflow, [...] Performing Organization Address City/State/Zipcode Phone Number [facility] [address] [place] [address] Lactic acid level, SEPSIS - Now and repeat 2x every 3 hours (07/21/2018 11:40 PM )Only the most recent of2 resultswithin the time period is included. Lactic acid 2.6 (H) 0.5 - 2.2 mmol/L [facility] DEPARTMENT OF PATHOLOGY AND GENOMIC MEDICINE Specimen Blood Performing Organization Address [facility] Phone Number [facility] DEPARTMENT OF PATHOLOGY AND [address] [place] [address] GENOMIC MEDICINE Lipid panel (07/21/2018 11:40 PM) Cholesterol 172 <200 mg/dL [facility] DEPARTMENT OF PATHOLOGY AND GENOMIC MEDICINE Triglycerides 149 <150 mg/dL [facility] DEPARTMENT OF PATHOLOGY AND GENOMIC MEDICINE HDL cholesterol 36 (L) >40 mg/dL [facility] DEPARTMENT OF PATHOLOGY AND GENOMIC MEDICINE LDL cholesterol 110 (H)Comment: Result <100 mg/dL [facility] DEPARTMENT OF obtained by direct LDL PATHOLOGY AND GENOMIC measurement MEDICINE Lipid panel interpretation SeeBelow [facility] DEPARTMENT OF Comment: PATHOLOGY AND GENOMIC Total Cholesterol (mg/dL) MEDICINE <200 Desirable [id number]-qmle >=240High Triglycerides (mg/dL) <150 Normal 340-209Sgdmviqjno-fiar 200-499High >=500Very high HDL Cholesterol (mg/dL) <40Low (male) <40Low (female) LDL Cholesterol (mg/dL) <100 Optimal 100-129Near or above optimal 903-530Jfnjoccltv-apyz 160-189High >=190Very high Risk Catergories that modify [...] (>=200 mg/dL) Specimen Blood Performing Organization Address City/[facility]/Zipcode Phone Number [facility] DEPARTMENT OF PATHOLOGY AND [address] [place] [address] GENOMIC MEDICINE CTA Abdominal Aorta And Bilateral [...] posterior tibial arteries are not contrast opacified. [facility]-[id number] Procedure Note Hm Interface, Radiology Results Incoming [...] posterior tibial arteries are not contrast opacified. [facility]-[id number] Performing Organization Address City/[facility]/Zipcode Phone Number [facility] [address] [place] [address] Sedimentation rate (07/21/2018 6:33 PM) Sedimentation rate 11 (H) 0 - 10 mm/hr [facility] DEPARTMENT OF PATHOLOGY AND GENOMIC MEDICINE Specimen Blood Performing Organization Address [facility] Phone Number [facility] DEPARTMENT OF PATHOLOGY AND [address] [place] [address] [facility] Creatine kinase, total (CPK) (07/21/2018 6:33 PM) Creatine kinase 128 39 - 308 U/L [facility] DEPARTMENT OF PATHOLOGY AND GENOMIC MEDICINE Specimen Plasma specimen Performing Organization Address [facility] Phone Number [facility] DEPARTMENT OF PATHOLOGY AND [address] [place] [address] [facility] Comprehensive metabolic panel (07/21/2018 6:33 PM) Sodium 141 135 - 148 mEq/L [facility] DEPARTMENT OF PATHOLOGY AND GENOMIC MEDICINE Potassium 3.7 3.5 - 5.0 mEq/L [facility] DEPARTMENT OF PATHOLOGY AND GENOMIC MEDICINE Chloride 105 98 - 112 mEq/L [facility] DEPARTMENT OF PATHOLOGY AND GENOMIC MEDICINE CO2 21 (L) 24 - 31 mEq/L [facility] DEPARTMENT OF PATHOLOGY AND GENOMIC MEDICINE Anion gap 15@ANIO 7 - 15 mEq/L [facility] DEPARTMENT OF PATHOLOGY AND GENOMIC MEDICINE BUN 11 6 - 20 mg/dL [facility] DEPARTMENT OF PATHOLOGY AND GENOMIC MEDICINE Creatinine 0.78 0.70 - 1.20 mg/dL [facility] DEPARTMENT OF PATHOLOGY AND GENOMIC MEDICINE Glucose 92 65 - 99 mg/dL [facility] DEPARTMENT OF PATHOLOGY AND GENOMIC MEDICINE Calcium 9.2 8.3 - 10.2 mg/dL [facility] DEPARTMENT OF PATHOLOGY AND GENOMIC MEDICINE Protein 7.8 6.3 - 8.3 g/dL [facility] DEPARTMENT OF Comment: PATHOLOGY AND GENOMIC 4.6-7.0 g/dL MEDICINE 1 week 4.4-7.6 g/dL 7 months-1year5.1-7.3 g/dL 1-2 years5.6-7.5 g/dL >3 years6.0-8.0 g/dL 18-150 6.3-8.3 g/dL Albumin 3.8 3.5 - 5.0 g/dL [facility] DEPARTMENT OF PATHOLOGY AND GENOMIC MEDICINE A/G ratio 1.0 0.7 - 3.8 [facility] DEPARTMENT OF PATHOLOGY AND GENOMIC MEDICINE Alkaline phosphatase 84 40 - 129 U/L [facility] DEPARTMENT OF PATHOLOGY AND GENOMIC MEDICINE AST 26 10 - 50 U/L [facility] DEPARTMENT OF PATHOLOGY AND GENOMIC MEDICINE ALT 73 (H) 5 - 50 U/L [facility] DEPARTMENT OF PATHOLOGY AND GENOMIC MEDICINE Total bilirubin 0.3 0.0 - 1.2 mg/dL [facility] DEPARTMENT OF PATHOLOGY AND GENOMIC MEDICINE Specimen Plasma specimen Performing Organization Address City/[facility] Phone Number [facility] DEPARTMENT OF PATHOLOGY AND [address] [place] [address] [facility] Blood culture, aerobic & anaerobic (07/21/2018 6:30 PM)Only the most recent of2 resultswithin the time period is included. Blood culture isolate No growth after 5 days of incubation. [facility] DEPARTMENT OF Comment: PATHOLOGY AND GENOMIC Specimen Information MEDICINE Specimen Source: Blood Specimen Site: Hand, left Specimen Blood - Hand, left Performing Organization Address [facility] Phone Number [facility] DEPARTMENT OF PATHOLOGY AND [address] [place] [address] [facility] XR Foot 3+ Vw Left (07/21/2018 6:14 [...] abnormality. No radiographic evidence of active osteomyelitis. [facility]-[id number] . Procedure Note Interface, Radiology Results Incoming [...] abnormality. No radiographic evidence of active osteomyelitis. [facility]-[id number] . Performing Organization Address City/State/Zipcode Phone Number [facility] [address] [place] [address] CRITICAL CARE (07/21/2018 5:34 PM) Narrative Performed [...] bolus and drip, admit for revascularization after 09/05/2017 Insurance Payer Benefit Plan / Group Subscriber ID Type Phone Address [employer] [place] [employer] PPO Home: [id number] [phone] [address]
[2018-09-06 10:07] LABS: Absolute Lymphocytes (CBC) 1.9 K/uL (0.7-4.9); Absolute Monocytes 0.6 K/uL (0.1-1.3); Basophils % 0.9 % (0-1.3); Eosinophils % 6.5 % (0-4.4); Hematocrit 46.7 % (39.6-49.0); Lymphocytes % 23.4 % (15.3-44.8); MCH 28.9 pg (27.0-35.0); MCV 86.9 fL (80-100); Monocytes % 7.2 % (3.3-12.3); RBC Red Blood Cell Count 5.37 M/uL (4.33-5.43)
[2018-09-06 10:25] LABS: BUN Blood Urea Nitrogen 11 mg/dL (7-18); Bicarbonate 21 mmol/L (21-32); C-Reactive Protein < 2.90 mg/L (<3.00); Glucose Level 110 mg/dL (74-106); Sodium Level 139 mmol/L (136-145)
[2018-09-06 10:38] LABS: Protime INR 0.91
--- NOTE | 2018-09-06 10:40 | EDPHYS ---
Physician Documentation [facility] Name: Moisés Albarado Age: 57 yrs Sex: Male : 1960 Arrival Date: 09/06/2018 Time: 09:23 Bed 18 Private MD: Niall Grewal V ED Physician Oren Chan HPI: 09/06 09:41 This 57 yrs old Male presents to ER via Ambulatory with complaints of Wound rn Check. 09:41 Patient presents to ED for recheck of: gangrene. The affected area is on the left first rn toe. The patient has experienced a previous episode. The patient has been recently seen at the [facility] Emergency Department. Reports seen here recently, left AMA, told needed admission with IV abx, had a busy schedule so left, now return because still painful. All started with nail removal 3 months ago, has completed 6 weeks of oral abx, was draining, no longer draining, + swollen.. Historical: - Allergies: 09:37 No Known Allergies; em - PMHx: 09:37 None; em - PSHx: 09:37 None; em - Immunization history:: Adult Immunizations up to date. - Social history:: Smoking status: Patient/guardian denies using tobacco. - Ebola Screening: : Patient negative for fever greater than or equal to 101.5 degrees Fahrenheit, and additional compatible Ebola Virus Disease symptoms Patient denies exposure to infectious person Patient denies travel to an Ebola-affected area in the 21 days before illness onset No symptoms or risks identified at this time. - Family history:: not pertinent. - Hospitalizations: : No recent hospitalization is reported. ROS: 09:41 Constitutional: Negative for fever, chills, and weight loss, Eyes: Negative for injury, rn pain, redness, and discharge, Cardiovascular: Negative for chest pain, palpitations, and edema, Respiratory: Negative for shortness of breath, cough, wheezing, and pleuritic chest pain, Abdomen/GI: Negative for abdominal pain, nausea, vomiting, diarrhea, and constipation, MS/Extremity: Negative for injury and deformity, Skin: + discoloration of left great toe Neuro: Negative for headache, weakness, numbness, tingling, and seizure. Exam: 09:41 Constitutional: This is a well developed, well nourished patient who is awake, alert, rn and in no acute distress. MS/ Extremity: Weak bilateral pulses, normal cap refill. + necrotic skin involving distal left 1st toe with surrounding erythema, no fluctuance or crepitus. Neuro: Awake and alert, GCS 15, oriented to person, place, time, and situation. Cranial nerves II-XII grossly intact. Motor strength 5/5 in all extremities. Sensory grossly intact. Cerebellar exam normal. Normal gait. Vital Signs: 09:38 BP 159 / 100; Pulse 97; Resp 19; Temp 98.2(O); Pulse Ox 100% on R/A; Weight 74.39 kg; em Height 5 ft. 7 in. (170.18 cm); Pain 0/10; 10:51 BP 147 / 80; Pulse 83; Resp 19; Pulse Ox 100% on R/A; Pain 0/10; em 11:40 BP 147 / 96; Pulse 87; Resp 18; Temp 98.4(O); Pulse Ox 100% on R/A; Pain 5/10; em 09:38 Body Mass Index 25.69 (74.39 kg, 170.18 cm) em MDM: 09:25 Patient medically screened. rn 10:37 Differential diagnosis: dry gangrene. Differential diagnosis: osteomyelitis. Data rn reviewed: vital signs, nurses notes. Counseling: I had a detailed discussion with the patient and/or guardian regarding: the historical points, exam findings, and any diagnostic results supporting the discharge/admit diagnosis, lab results, radiology results, the need for further work-up and treatment in the hospital. Admission orders: after a detailed discussion of the patient's condition and case, the admit orders are written by me. ED course: Consulted with Dr. James, will admit to hospitalist service and surgical consult.. 09/06 09:40 Order name: CBC with Diff; Complete Time: 10:17 rn 09/06 09:40 Order name: Basic Metabolic Panel; Complete Time: 10:34 rn 09/06 09:40 Order name: PT-INR; Complete Time: 10:40 rn 09/06 09:40 Order name: Ptt, Activated; Complete Time: 10:40 rn 09/06 09:40 Order name: Blood Culture Adult (2) rn 09/06 09:41 Order name: Sed Rate; Complete Time: 10:34 rn 09/06 09:32 Order name: XRAY Foot LEFT 3 View; Complete Time: 11:09 rn 09/06 09:40 Order name: IV Start; Complete Time: 09:46 rn 09/06 09:41 Order name: CRP; Complete Time: 10:34 rn Administered Medications: 11:05 Drug: Clindamycin 600 mg Route: IVPB; Infused Over: 30 mins; Site: left hand; em 11:37 Follow up: Response: No adverse reaction; IV Status: Completed infusion; IV Intake: 50mlem Disposition: 09/06/18 10:40 Hospitalization ordered by Niall Grewal for Inpatient Admission. Preliminary diagnosis is Gangrene, not elsewhere classified. - Bed requested for Telemetry/MedSurg (Inpatient). - Status is Inpatient Admission. em - Condition is Stable. - Problem is an ongoing problem. - Symptoms are unchanged. UTI on Admission? No Signatures: Dispatcher [employer] EDAlec Alves, BENJIE BRIM STITCHER Oren Garcia MD MD rn Botello, Elizabeth eb Corrections: (The following items were deleted from the chart) 11:34 10:40 Hospitalization Ordered by Niall Grewal MD for Inpatient Admission. Preliminary eb diagnosis is Gangrene, not elsewhere classified. Bed requested for Telemetry/MedSurg (Inpatient). Status is Inpatient Admission. Condition is Stable. Problem is an ongoing problem. Symptoms are unchanged. UTI on Admission? No. rn 11:49 11:34 09/06/2018 10:40 Hospitalization Ordered by Niall Grewal MD for Inpatient em Admission. Preliminary diagnosis is Gangrene, not elsewhere classified. Bed requested for Telemetry/MedSurg (Inpatient). Status is Inpatient Admission. Condition is Stable. Problem is an ongoing problem. Symptoms are unchanged. UTI on Admission? No. eb
--- NOTE | 2018-09-06 10:40 | ER ---
Nurse's Notes [facility] Name: Moisés Albarado Age: 57 yrs Sex: Male : 1960 Arrival Date: 09/06/2018 Time: 09:23 Bed 18 Private MD: Niall Grewal V Diagnosis: Gangrene, not elsewhere classified Presentation: 09/06 09:33 Acuity: BLANKA 3 ch 09:33 Presenting complaint: Patient states: was seen here on Sunday for a infected big left em toe, came today to wound care to have it reevaluated but was told to come to the ER. Transition of care: patient was not received from another setting of care. Onset of symptoms was June 2018. Risk Assessment: Do you want to hurt yourself or someone else? Patient reports no desire to harm self or others. Initial Sepsis Screen: Does the patient meet any 2 criteria? HR > 90 bpm. Does the patient have a suspected source of infection? Yes: Bone or joint infection. Care prior to arrival: None. 09:33 Method Of Arrival: Ambulatory em Triage Assessment: 09:37 General: Appears in no apparent distress. comfortable, Behavior is calm, cooperative. em Pain: Complains of pain in left first toe and Left first toenail. Historical: - Allergies: 09:37 No Known Allergies; em - PMHx: 09:37 None; em - PSHx: 09:37 None; em - Immunization history:: Adult Immunizations up to date. - Social history:: Smoking status: Patient/guardian denies using tobacco. - Ebola Screening: : Patient negative for fever greater than or equal to 101.5 degrees Fahrenheit, and additional compatible Ebola Virus Disease symptoms Patient denies exposure to infectious person Patient denies travel to an Ebola-affected area in the 21 days before illness onset No symptoms or risks identified at this time. - Family history:: not pertinent. - Hospitalizations: : No recent hospitalization is reported. Screenin:47 Abuse screen: Denies threats or abuse. Nutritional screening: No deficits noted. em Tuberculosis screening: No symptoms or risk factors identified. Fall Risk None identified. Assessment: 09:38 General: Appears in no apparent distress. comfortable, Behavior is calm, cooperative. em Pain: Complains of pain in Left first toenail and left first toe. Neuro: Level of Consciousness is awake, alert, obeys commands, Oriented to person, place, time, situation, Gait is steady, Cardiovascular: Capillary refill < 3 seconds Patient's skin is warm and dry. Respiratory: Airway is patent Respiratory effort is even, unlabored, Respiratory pattern is regular, symmetrical. GI: No signs and/or symptoms were reported involving the gastrointestinal system. : No signs and/or symptoms were reported regarding the genitourinary system. EENT: No signs and/or symptoms were reported regarding the EENT system. Derm: Skin is intact, Skin is pink, warm \T\ dry. eschar noted to big left toe. Musculoskeletal: Range of motion: intact in all extremities. 09:45 Reassessment: I agree with previous assessment. hb 10:50 Reassessment: Patient appears in no apparent distress at this time. Patient and/or em family updated on plan of care and expected duration. Pain level reassessed. Patient is alert, oriented x 3, equal unlabored respirations, skin warm/dry/pink. 11:40 Reassessment: Patient appears in no apparent distress at this time. Patient and/or em family updated on plan of care and expected duration. Pain level reassessed. Patient is alert, oriented x 3, equal unlabored respirations, skin warm/dry/pink. Vital Signs: 09:38 BP 159 / 100; Pulse 97; Resp 19; Temp 98.2(O); Pulse Ox 100% on R/A; Weight 74.39 kg; em Height 5 ft. 7 in. (170.18 cm); Pain 0/10; 10:51 BP 147 / 80; Pulse 83; Resp 19; Pulse Ox 100% on R/A; Pain 0/10; em 11:40 BP 147 / 96; Pulse 87; Resp 18; Temp 98.4(O); Pulse Ox 100% on R/A; Pain 5/10; em 09:38 Body Mass Index 25.69 (74.39 kg, 170.18 cm) em ED Course: 09:23 Patient arrived in ED. as 09:24 Niall Grewal MD is Private Physician. as 09:25 Oren Chan MD is Attending Physician. rn 09:33 Alec Matthews LVN is Primary Nurse. em 09:33 Triage completed. ch 09:37 X-ray completed. Portable x-ray completed in exam room. Patient tolerated procedure kw well. 09:38 Arm band placed on. em 09:39 XRAY Foot LEFT 3 View In Process Unspecified. EDMS 09:47 Patient has correct armband on for positive identification. Bed in low position. Call em light in reach. 10:00 Inserted saline lock: 20 gauge in left hand, using aseptic technique. Blood collected. em1 10:40 Niall Grewal MD is Hospitalizing Provider. rn 11:43 No provider procedures requiring assistance completed. Patient admitted, IV remains in em place. Administered Medications: 11:05 Drug: Clindamycin 600 mg Route: IVPB; Infused Over: 30 mins; Site: left hand; em 11:37 Follow up: Response: No adverse reaction; IV Status: Completed infusion; IV Intake: 50mlem Intake: 11:37 IV: 50ml; Total: 50ml. em Outcome: 10:40 Decision to Hospitalize by Provider. rn 11:43 Admitted to Med/surg em 11:43 Condition: good 11:43 Instructed on the need for admit, Demonstrated understanding of instructions. 11:49 Patient left the ED. em Signatures: Dispatcher [employer] EDMS Yuli Murphy, RN RN Alec Baker, VISCOSE CELLAR WORKER VISCOSE CELLAR WORKER em Graciela Fang Roman, MD MD rn Martinez, Eric em1 Rosa Hernandez Heather, RN RN
--- NOTE | 2018-09-06 10:57 | RAD REPORT ---
EXAM DESCRIPTION: RAD - Foot Left 3 View - 09/06/2018 9:41 am CLINICAL HISTORY: Foot pain, soft tissue wound left first toe COMPARISON: September 01 FINDINGS: No fracture, dislocation or periosteal reaction. Cortical irregularity in the medial karissa n of the distal phalanx tuft has not clearly changed from the examination of 5 days earlier. Soft tis jessica wound changes are again identified. No new or progressive air within the soft tissues. No abnorma l calcification or foreign body in the soft tissues. IMPRESSION: Subtle cortical irregularity along the medial tip of the distal phalanx tuft first toe h as not changed from the prior examination. No new or progressive soft tissue finding. In the setting of soft tissue infection, the subtle cortical change could indicate osteomyelitis.
[2018-09-06] MEDS ORDERED: CLINDAMYCIN 600MG/D5W 600 MG/50 ML BAG IV ONE (11:08)
[2018-09-06] MEDS ORDERED: ONDANSETRON 4 MG/2 ML VIAL IV PRN (12:07)
[2018-09-06 12:32] VITALS: BMI 25.7
[2018-09-06] MEDS: D5 0.45 NS 1,000 ML IV SCH ×2 (12:44→23:34)
[2018-09-06] MEDS: ACETAMINOPHEN 500 MG TAB PO PRN ×2 (12:44→20:31)
[2018-09-06] MEDS: COLLAGENASE 30 GM OINTMENT TOP SCH (14:01)
--- NOTE | 2018-09-06 14:18 | P.HP ---
Certification for Inpatient Patient admitted to: Inpatient With expected LOS: >2 Midnights Practitioner: I am a practitioner with admitting privileges, knowledge of patient current condition, hospital course, and medical plan of care. Services: Services provided to patient in accordance with Admission requirements found in Title 42 Section 412.3 of the Code of Federal Regulations Patient History Date of Service: 09/06/18 Reason for admission: L GREAT TOE DISTAL BLACK TENDER AREA History of Present Illness: MR. CHUNG HAS NOT BEEN TO MY OFFICE SINCE 02/2017. HE TRAVELS A LOT. HE HAS HAD TOE NAIL INFECTION IN [place], WENT TO SOMEONE,TOOKOUT THE TOE, GOT ABX FOR 6 WEEKS. HE KEPT ON WORKING. HE SOMEHOW ENDSUP IN [facility] [facility] VIA DR. DIAL , HAD CATH, PTCA, AND MAY BE A STENT BUT HE IS NOT ABLE TO CONFIRM. HE CAME TO ER TWO DAYS AGO FOR DARKDISTAL TOE AREA, TWO DAYS AGO, WAS ADVISED ADMISSION BUT SIGNS AMA AND COMES TODAY TO ER AGAIN. Allergies No Known Allergies Allergy (Verified 12/22/16 13:23) Home Medications: Aspirin Chewable [Aspirin Chewable*] 81 mg PO DAILY 12/22/16 Amoxicillin/Potassium Clav [Amox-Clav 875-125 mg Tablet] 875 mg PO Q8HR Ciprofloxacin HCl [Cipro 500 MG Tablet] 1 tab PO BID 07/17/18 Tramadol HCl [Ultram] 50 mg PO Q8HR PRN 07/17/18 - Past Medical/Surgical History Has patient received pneumonia vaccine in the past: No Diabetic: No -: left hand surgery - Social History Smoking Status: Current every day smoker Alcohol use: Yes CD- Drugs: No Caffeine use: Yes Place of Residence: Home Review of Systems 10-point ROS is otherwise unremarkable Integumentary: As per HPI Physical Examination - Vital Signs Temperature: 97.8 F Blood Pressure: 145/84 Pulse: 78 Respirations: 18 Pulse Ox (%): 99 - Physical Exam General: Alert, In no apparent distress HEENT: Atraumatic, PERRLA, Mucous membr. moist/pink, EOMI, Sclerae nonicteric Neck: Supple, 2+ carotid pulse no bruit, No LAD, Without JVD or thyroid abnormality Respiratory: Clear to auscultation bilaterally, Normal air movement Cardiovascular: Regular rate/rhythm, Normal S1 S2 Gastrointestinal: Normal bowel sounds, No tenderness Musculoskeletal: No tenderness Integumentary: Arterial ulcer (GANGRENOUS DISTAL HALF OF L GREAT TOE. PROXIAL PAINFUL BASE. PULSE DP NEGATIVE) Neurological: Normal gait, Normal speech, Normal strength at 5/5 x4 extr, Normal tone, Normal affect Lymphatics: No axilla or inguinal lymphadenopathy - Studies Laboratory Data (last 24 hrs) 09/06/18 10:20: PT 10.7, INR 0.91, APTT 29.6 09/06/18 09:45: Sodium 139, Potassium 4.0, BUN 11, Creatinine 0.80, Glucose 110 H 09/06/18 09:45: WBC 8.0, Hgb 15.5, Hct 46.7, Plt Count 311 Assessment and Plan - Problems (Diagnosis) (1) HTN (hypertension) Current Visit: Yes Status: Chronic Plan: NEEDS LOSARTAN WILL START HE NEED TO COME TO OFFICE AT LEAST EVERY 6 MONTHS. (2) Atherosclerosis of [place] arteries of left leg with ulceration of other part of foot Current Visit: No Status: Acute Plan: I SUSPECT HE WILL NEED AMPUTATION OF DISTAL TOE. HE WILL NOT HEAL WITH ANTIBIOTICS AND DEBRIDEMENT. [facility]I WILL NOT WORK WITH GANGRENOUS TOE. - Advance Directives Does patient have a Living Will: No Does patient have a Durable POA for Healthcare: No
[2018-09-06] MEDS: PIPER/TAZO/NS 3.375gm 3.375 GM/100 ML BAG IV SCH (16:47)
[2018-09-07] MEDS: PIPER/TAZO/NS 3.375gm 3.375 GM/100 ML BAG IV SCH ×3 (00:53→18:22)
[2018-09-07 05:15] LABS: Absolute Lymphocytes (CBC) 2.1 K/uL (0.7-4.9); Absolute Monocytes 0.6 K/uL (0.1-1.3); Absolute Neutrophil 3.7 K/uL (1.8-8.0); Basophils % 0.8 % (0-1.3); Eosinophils % 7.6 % (0-4.4); Hematocrit 40.6 % (39.6-49.0); Lymphocytes % 29.9 % (15.3-44.8); MCV 87.9 fL (80-100); Monocytes % 8.6 % (3.3-12.3); RBC Red Blood Cell Count 4.62 M/uL (4.33-5.43)
[2018-09-07 05:26] LABS: Potassium 3.5 mmol/L (3.5-5.1)
[2018-09-07] MEDS ORDERED: TRAMADOL HCL 50 MG TAB PO PRN (08:06)
[2018-09-07] MEDS: COLLAGENASE 30 GM OINTMENT TOP SCH (09:00)
[2018-09-07] MEDS: APIXABAN 2.5 MG TABLET PO SCH ×2 (09:00→20:20)
[2018-09-07] MEDS: D5 0.45 NS 1,000 ML IV SCH ×2 (09:44→16:55)
[2018-09-07] MEDS: ACETAMINOPHEN 500 MG TAB PO PRN ×2 (09:44→20:19)
[2018-09-07] MEDS: DOCUSATE NA 100 MG CAP PO SCH ×2 (09:47→20:19)
[2018-09-07] MEDS: CARVEDILOL 3.125 MG TAB PO SCH (09:47)
[2018-09-07] MEDS: PANTOPRAZOLE 40MG TABLET PO SCH (09:51)
--- NOTE | 2018-09-07 13:55 | CON ---
Date of Consultation: 09/06/2018 Brief History Of Present Illness: The patient is a 57-year-old male who has a history of left great distal toe eschar and infection. He has been seen by Dr. Grewal, who has been managing his multiple m edical problems as well as helping him with antibiotics for the wound of his left great toe for appro ximately 6 weeks. He ultimately comes in now with black, dry gangrenous change to the tip of the lef t great toe. Past Medical History: Significant for a possible coronary artery disease. Past Surgical History: He has had hand surgery. Allergies: NO KNOWN DRUG ALLERGIES. Medications: At home include Augmentin, Eliquis, Coreg, cephalexin, Colace, Protonix, and tramadol. Social History: He admits to smoking actively. He states he used to be a 2 pack per day smoker, but now is down to less so. Review of Systems: A 10-point review of systems other than HPI, denies. Physical Examination: Vital Signs: At the time of examination, his BMI is 25.7. General: He is awake, alert, and oriented. Psychiatric: He is appropriately conversive. HEENT: He is normocephalic. His sclerae are anicteric. His mucous membranes are moist. His oropha rynx is clear. Neck: Supple. No JVD. Chest: Normal expansion and excursion. Cardiovascular: Regular rate and rhythm. Pulmonary: Clear to auscultation bilaterally. Abdomen: Soft. Extremities: Focused examination of the skin shows a dry gangrenous change to the distal half of the left great toe. There is some tenderness to the proximal interphalangeal joint region. Laboratory Data: He had a laboratory exam, which revealed a white blood cell count of 8.0, hemoglobi n 15.5, hematocrit of 46.7, platelet count is 311. His PT is 10.7, INR is 0.91, PTT is 29.6. His so dium 139, potassium 4.0, chloride 111, carbon dioxide 21, BUN 11, creatinine 0.8, glucose is 110, his A1c of 6.1. His C-reactive protein is less than 2.9. He had imaging performed which included a alivia t x-ray of the left foot, which was officially read as subtle cortical irregularity along the medial tip of the distal phalanx tuft first toe, has not changed since prior examination. No new progressiv e soft tissue findings in the setting of soft tissue infection, subtle cortical changes could indicat e osteomyelitis. Assessment And Plan: This is a 57-year-old male with a chronic wound of the left great toe. 1.IV fluid hydration. 2.Antibiotic coverage. 3.I have recommended debridement and a partial amputation of the great toe. I have explained that t his might involve a complete amputation of the entire toe and that wound care is imperative to contin ue in the postoperative period as well as smoking cessation for optimal outcome in this case. He has agreed and as such, we will proceed with surgery. He will be n.p.o. after midnight and we will proc eed with surgery for a distal toe amputation, possible great toe amputation on the left side. I have explained the risks, benefits, alternatives of the above-stated plan including, but not limited to t hat of bleeding, infection, damage to surrounding tissues, need for further operative procedures, codey oing wound care, and the patient agrees to proceed as indicated. Thank you for this interesting consult. LEONARDO/MANNIE Voice ID: [id number] Report ID: [id number]
--- NOTE | 2018-09-07 17:48 | P.PN ---
Subjective Date of Service: 09/07/18 Chief Complaint: L GREAT TOE DISTAL BLACK TENDER AREA Subjective: Improving HE SAYS THE PAIN IS BETTER. HE DENIES ANY OTHER SYMPTOMS. Review of Systems 10-point ROS is otherwise unremarkable Integumentary: As per HPI (GANGRENOUS DISTAL L GREAT TOE.) Physical Examination - Vital Signs Temperature: 98.5 F Blood Pressure: 132/73 Pulse: 82 Respirations: 18 Pulse Ox (%): 99 - Physical Exam General: Alert, Mild distress HEENT: Atraumatic, PERRLA, EOMI Neck: Supple, JVD not distended Respiratory: Clear to auscultation bilaterally, Normal air movement Cardiovascular: Regular rate/rhythm, Normal S1 S2 Gastrointestinal: Normal bowel sounds, No tenderness Musculoskeletal: No tenderness Integumentary: Arterial ulcer (WITH GANGRENE DISTAL L GREAT TOE.) Neurological: Normal speech, Normal tone, Normal affect Lymphatics: No axilla or inguinal lymphadenopathy - Studies Medications List Reviewed: Yes Assessment And Plan - Current Problems (Diagnosis) (1) HTN (hypertension) Current Visit: Yes Status: Chronic Plan: NEEDS LOSARTAN WILL START HE NEED TO COME TO OFFICE AT LEAST EVERY 6 MONTHS. IMPROVED. (2) Atherosclerosis of [place] arteries of left leg with ulceration of other part of foot Current Visit: No Status: Acute Plan: I SUSPECT HE WILL NEED AMPUTATION OF DISTAL TOE. HE WILL NOT HEAL WITH ANTIBIOTICS AND DEBRIDEMENT. SUKHI WILL NOT WORK WITH GANGRENOUS TOE. L DISTAL GREAT TOE AMPUTATION HAS BEEN RECOMMEDED BY DR OSCAR. I AGREE. PATIENT HAS TO DECIDE.
[2018-09-07 21:42] LABS: Urine Appearance CLEAR; Urine Bilirubin NEGATIVE (NEG); Urine Blood NEGATIVE (NEG); Urine Color YELLOW; Urine Glucose NEGATIVE (NEG); Urine Protein NEGATIVE (NEG); Urine Specific Gravity 1.015 (1.005-1.030); Urine Urobilinogen 0.2 mg/dL (0.2-1.0)
[2018-09-07 21:44] LABS: Urine Microscopic Reflex NO UMIC
[2018-09-08] MEDS: PIPER/TAZO/NS 3.375gm 3.375 GM/100 ML BAG IV SCH ×3 (01:07→17:31)
[2018-09-08] MEDS: D5 0.45 NS 1,000 ML IV SCH ×3 (01:07→21:19)
[2018-09-08] MEDS: PANTOPRAZOLE 40MG TABLET PO SCH (05:36)
[2018-09-08] MEDS: DOCUSATE NA 100 MG CAP PO SCH ×2 (08:22→21:22)
[2018-09-08] MEDS: APIXABAN 2.5 MG TABLET PO SCH ×2 (08:22→21:19)
[2018-09-08] MEDS: COLLAGENASE 30 GM OINTMENT TOP SCH (08:22)
[2018-09-08] MEDS: CARVEDILOL 3.125 MG TAB PO SCH ×2 (08:22→08:37)
[2018-09-08] MEDS ORDERED: Ringers Lactate 1,000 ML IV ONE (09:14)
[2018-09-08] MEDS ORDERED: PROPOFOL 200 MG/20 ML VIAL IV ONE (09:28)
[2018-09-08] MEDS ORDERED: FENTANYL CITR 100 MCG/2 ML ONE ×2 (09:28→10:00)
[2018-09-08] MEDS ORDERED: DEXAMETHASONE 10 MG/ML VIAL ONE (09:41)
[2018-09-08] MEDS ORDERED: KETOROLAC 30 MG/ML INJ ONE (09:41)
[2018-09-08] MEDS ORDERED: ONDANSETRON HCL 40 MG/20 ML VIAL ONE (09:41)
[2018-09-08] MEDS ORDERED: Phenylephrine HCl 10 MG/ML 1 ML VIAL ONE (09:58)
[2018-09-08] MEDS ORDERED: MORPHINE 10 MG/ML VIAL ONE (10:04)
[2018-09-08] MEDS ORDERED: GLYCOPYRROLATE 0.2 MG/ML SYR ONE (10:09)
--- NOTE | 2018-09-08 10:18 | P.OP ---
Preoperative diagnosis: Left Great Toe infection Postoperative diagnosis: Left Great Toe infection Primary procedure: Partial Amputation of LEFT great toe Anesthesia: GETA Estimated blood loss: <20cc Specimen: Bone, infected tissue, escar Findings: distal phalanx was osteopenic Complications: None Transferred to: Recovery Room Condition: Good
[2018-09-08] MEDS: MEPERIDINE HCL 50 MG/ML AMP ONE ×2 (10:38→10:43)
[2018-09-08] MEDS: HYDROCODONE/APAP 5/325 MG TAB PO PRN ×2 (11:35→22:35)
--- NOTE | 2018-09-08 21:56 | OP ---
Date of Procedure: 09/08/2018 Surgeon: Eduardo James MD, Preoperative Diagnosis: Left great toe infection. Postoperative Diagnosis: Left great toe infection. Procedure Performed: Partial amputation of the left great toe at the distal interphalangeal joint. Anesthesia: General endotracheal only. Estimated Blood Loss: Less than 20 cc. Specimen: Bone, infected tissue, and eschar. Findings: Distal phalanx was osteopenic. Complications: None. Disposition: Transferred to recovery room in good condition. Procedure In Detail: After informed consent was obtained, the patient was brought to the operating r oom, prepped and draped in the usual sterile fashion. After adequate anesthesia was achieved, an are a of the left great toe surrounding an area of infection and eschar was demarcated with a scalpel bas ed on a plantar pedicled flap incision. After this was performed, electrocautery was dissected down to find the osteopenic distal interphalangeal joint and distal phalanx. The dissection continued marta und circumferentially to remove the ligamentous attachments and removed these as well. The bone was grasped and with a penetrating towel clamp and fractured at the tip. As such, I then dissected down to the interphalangeal joint and removed the distal phalanx at the interphalangeal joint. Periosteal elevator was used to push back the periosteum surrounding the joint, and all associated necrotic tis jessica was removed and sent off the field. The area was copiously irrigated multiple times. Hemostasis was achieved easily with electrocautery. After that, the flap was then slightly on the plantar aspe ct. The T-type incision on the top was inspected. Proper hemostasis was achieved at this time. The incision was then closed using a 2-0 nylon in an interrupted fashion with a vertical mattress suture orientation as well. Sterile dressing was placed over the top. The patient tolerated the procedure without evidence of complication. He had been transferred to the PACU in good condition. All count s were correct at the end of the case. LEONARDO/MANNIE Voice ID: [id number] Report ID: [id number]
[2018-09-08 23:41] VITALS: O2SAT 98
[2018-09-09] MEDS: PIPER/TAZO/NS 3.375gm 3.375 GM/100 ML BAG IV SCH (00:56)
[2018-09-09] MEDS: PANTOPRAZOLE 40MG TABLET PO SCH (08:58)
[2018-09-09] MEDS: DOCUSATE NA 100 MG CAP PO SCH (08:59)
[2018-09-09] MEDS: CARVEDILOL 3.125 MG TAB PO SCH (08:59)
[2018-09-09] MEDS: COLLAGENASE 30 GM OINTMENT TOP SCH (08:59)
[2018-09-09] MEDS: APIXABAN 2.5 MG TABLET PO SCH (08:59)
[2018-09-09] MEDS ORDERED: CIPROFLOXACIN HCL 500 MG TAB PO SCH (09:00)
[2018-09-09 09:08] VITALS: TEMP 99.1
[2018-09-09] MEDS: D5 0.45 NS 1,000 ML IV SCH (10:07)
[2018-09-09] MEDS: HYDROCODONE/APAP 5/325 MG TAB PO PRN (10:48)
[2018-09-09 12:35] VITALS: BP 149/72
--- NOTE | 2018-09-10 06:36 | P.DS ---
Admission Date: 09/06/18 Discharge Date: 09/10/18 Disposition: ROUTINE DISCHARGE Discharge Condition: GOOD Reason for Admission: L GREAT TOE DISTAL BLACK TENDER AREA - Problems (1) HTN (hypertension) Onset Date: 09/09/18 Status: Chronic (2) Atherosclerosis of [place] arteries of left leg with ulceration of other part of foot Status: Acute Brief History of Present Illness: MR. CHUNG HAS NOT BEEN TO MY OFFICE SINCE 02/2017. HE TRAVELS A LOT. HE HAS HAD TOE NAIL INFECTION IN [place], WENT TO SOMEONE,TOOKOUT THE TOE, GOT ABX FOR 6 WEEKS. HE KEPT ON WORKING. HE SOMEHOW ENDSUP IN [place] [facility] VIA DR. DIAL , HAD CATH, PTCA, AND MAY BE A STENT BUT HE IS NOT ABLE TO CONFIRM. HE CAME TO ER TWO DAYS AGO FOR DARKDISTAL TOE AREA, TWO DAYS AGO, WAS ADVISED ADMISSION BUT SIGNS AMA AND COMES TODAY TO ER AGAIN. [facility]LIT[facility] WAS DISCHARGED BY DR SINGLETON AFTER DISTAL TOE AMPUTATION. HE WILL QUIT SMOKING. HE NEED TO FU AT OFFICE ABOUT TWICE A YEAR. Vital Signs/Physical Exam: Temp Pulse Resp BP Pulse Ox 99.1 F 78 16 149/72 H 98 09/09/18 12:00 09/09/18 12:00 09/09/18 12:00 09/09/18 12:00 09/09/18 12:00 Laboratory Data at Discharge: WBC 7.0 K/uL (4.3-10.9) 09/07/18 04:38 Hgb 13.4 g/dL (13.6-17.9) L 09/07/18 04:38 Hct 40.6 % (39.6-49.0) 09/07/18 04:38 Plt Count 253 K/uL (152-406) 09/07/18 04:38 PT 10.7 SECONDS (9.5-12.5) 09/06/18 10:20 INR 0.91 09/06/18 10:20 APTT 29.6 SECONDS (24.3-36.9) 09/06/18 10:20 Sodium 139 mmol/L (136-145) 09/07/18 04:38 Potassium 3.5 mmol/L (3.5-5.1) 09/07/18 04:38 BUN 13 mg/dL (7-18) 09/07/18 04:38 Creatinine 0.90 mg/dL (0.55-1.3) 09/07/18 04:38 Glucose 241 mg/dL (74-106) H 09/07/18 04:38 Home Medications: Amoxicillin/Potassium Clav [Amox-Clav 875-125 mg Tablet] 875 mg PO Q8HR Tramadol HCl [Ultram] 50 mg PO Q8HR PRN 07/17/18 Apixaban [Eliquis *] 2 tab PO DAILY 09/06/18 Carvedilol [Coreg*] 1 tab PO DAILY 09/06/18 Cephalexin 500 mg PO Q8HR 09/06/18 Docusate [Colace Cap*] 100 mg PO BID 09/06/18 Pantoprazole [Protonix Tab*] 40 mg PO DAILY 09/06/18 Ciprofloxacin HCl [Cipro 500 MG Tablet] 500 mg PO BID #10 tab 09/09/18 New Medications: Ciprofloxacin HCl [Cipro 500 MG Tablet] 500 mg PO BID #10 tab Diet: ADA Activity: Non-weight bearing (to left foot, use crutches) Followup: Eduardo James MD [ACTIVE - CAN ADMIT] - 1 Week (Call for appointment.)
== END 2018-09-09 13:19 | disposition home or self-care (01) | DRG 505 ==
LOC: ER 09:22 → ERHOLD 10:48 → 2ND 11:44
PROVIDERS: ADMIT Internal Medicine; ATTEND Internal Medicine
PROC: 0Y6Q0Z3 Detachment at Left 1st Toe, Low, Open Approach (ICD-10-PCS; principal; 2018-09-08 09:30)
DX: M86.172 Other acute osteomyelitis, left ankle and foot (principal); I70.245 Atherosclerosis of native arteries of left leg with ulceration of other part of foot; F17.210 Nicotine dependence, cigarettes, uncomplicated; I10 Essential (primary) hypertension
CPT/HCPCS: 36415; 80048; 81003; 82962; 83036; 85025; 85610; 85652; 85730; 86140; 87040; 87070; 87077; 87186; 87205; 88305; 88311; 96365; 99285; J1100; J2175; J2370; J2405; J2543; J2704; J3010; J3590